=== PATIENT | male | born 1960 | race Caucasian/White ===

== ENCOUNTER 2018-01-18 09:05 | Emergency (ER) | payer OTHER, SELFPAY ==
[2018-01-18 09:06] VITALS: BP 178/106; PULSE 51; RESP 17; TEMP 36.8; O2SAT 98; BMI 40.4
--- NOTE | 2018-01-18 09:21 | ED.VISSUMM ---
- ER Visit Summary Date of Service: 01/18/18 Chief Complaint: Right fourth finger laceration History of Present Illness: The patient is a 57 M who was helping move a car when his ring finger got caught in between the tire and a brake caliper. He sustained a laceration to the fourth finger. He put peroxide on it last night. When he woke up this morning he noted that was still bleeding. His last tetanus was within the last 10 years. He comes in for evaluation of his wound today. Physical Examination: Vital signs are reviewed. The right hand exam reveals a 2 cm laceration on the palm side of the fourth finger at the DIP joint. On the dorsal side there is a skin tear between the DIP and PIP joints. No active bleeding at this time. Test Results: None performed Emergency Department Course and Treatment: It is been over 12 hours since his laceration occurred. He has arrived too late for laceration repair. Patient will have the wound cleaned. Bacitracin and dressing will be placed. He was educated that it is too late for laceration repair. He was encouraged to keep the area clean and dry and keep dressing it with antibiotic creams. He was educated that it may take longer for this to heal since it was not repaired adequate amount of time. He understands and will follow up with his PCP Treatment Plan: [] Disposition: Discharge Impression: Right fourth finger laceration, 2 cm This note was generated with [employer] dictation software. It may contain incorrect words, spelling, and punctuation that were not noted in review of the chart prior to signing ED Disposition - Plan for ED Patient: Chief Complaint: Laceration Referrals: Isela Velez MD [Primary Care Provider] -
--- NOTE | 2018-01-18 09:23 | ED.DEP ---
ED Disposition - Plan for ED Patient: Disposition: Home or Assisted Living Chief Complaint: Laceration Instructions: ED Laceration All Referrals: Isela Velez MD [Primary Care Provider] -
== END 2018-01-18 10:03 | disposition home or self-care (01) ==
PROVIDERS: Emergency Provider Emergency Medicine; Family Provider Internal Medicine; PCP Internal Medicine
DX: S61.214A Laceration without foreign body of right ring finger without damage to nail, initial encounter (principal); W23.0XXA Caught, crushed, jammed, or pinched between moving objects, initial encounter; Y93.89 Activity, other specified; Y92.9 Unspecified place or not applicable; Y99.9 Unspecified external cause status; I10 Essential (primary) hypertension
CPT/HCPCS: 99282

== ENCOUNTER 2020-04-01 16:40 | Emergency (ER) | payer OTHER, SELFPAY ==
[2020-04-01 16:41] VITALS: BP 239/121; PULSE 84; RESP 18; TEMP 36.9; O2SAT 96; BMI 27.7
--- NOTE | 2020-04-01 17:03 | CT_ITS ---
STUDY: CT ABDOMEN AND PELVIS WITH CONTRAST REASON FOR EXAM: Male, 60 years old. LLQ PAIN, HX DIVERTICULITIS, UMBILICAL HERNIA REPAIR RADIATION DOSAGE (If Supplied By Facility): CTDIvol = ( 20.3 ) mGy, DLP = ( 2640.78 ) mGycm TECHNIQUE: Transaxial images were obtained from the dome of the diaphragm to the symphysis pubis without oral contrast. IV 100mL Isovue-370 was administered. Sagittal and coronal images were reconstructed. Individualized dose optimization techniques were used for this CT. COMPARISON: None. FINDINGS: The visualized lung bases are unremarkable. The visualized portions of the heart are within normal limits. Hepatomegaly. Normal gallbladder and extrahepatic biliary system. Normal spleen. Normal pancreas. Normal bilateral adrenal glands. Normal right kidney. 4 cm left renal cyst. Normal visualized stomach. Normal small intestine. There are multiple colonic diverticula consistent with diverticulosis. The appendix is visualized and appears normal. Normal abdominal aorta. Normal inferior vena cava. Normal retroperitoneum. Normal urinary bladder. There is enlargement of the prostate gland. Anterior abdominal wall hernia repair. Normal osseous structures. CT/Abdomen/Pelvis W IV Cont ONLY IMPRESSION: No evidence of appendicitis, acute intestinal pathology, or acute obstructive uropathy. Hepatomegaly. Electronically Signed: Isaiah De La Rosa MD at 18:19 EST Tel , Service support ,
--- NOTE | 2020-04-01 17:05 | ED.DCSUM_ITS ---
- ER Visit Summary Date of Service: 04/01/20 Chief Complaint: Joint pain and left lower quadrant abdominal pain History of Present Illness: The patient is a 60 M history of prior gout and prior diverticulitis. Also history of hypertension and prior hernia repair with mesh. Patient states that about a month ago was treated for what his primary care physician thought was diverticulitis he was placed on Augmentin for initially 10 days and then a total of 18. He had no imaging. He said improved but seems like he is having a bit more left lower quadrant abdominal pain now. Denies any dysuria. States he is peeing frequently but thinks that is from drinking a lot of fluids. Also states Thursday of last week started having right knee pain that moved to his left knee and moved to both feet similar to his prior history of gout attacks. He denies any vomiting, diarrhea or constipation. No melena. No fever. He is currently on no medication for gout. Physical Examination: Middle-aged male vital signs are stable afebrile initial blood pressure is elevated to 39/121. Afebrile. He does not look septic or toxic. H EENT exam unremarkable. Lungs clear to auscultation bilaterally. Heart regular rhythm no murmur. Abdomen obese but soft minimally tender in left lower quadrant. No peritoneal signs. No pulsatile mass. Both the right upper right lower quadrants are unremarkable. No obvious hernia. No signs of obstruction. No masses. Extremities moves all 4. He does have a swollen slightly warm left knee consistent with gout. He is able to flex and extend the left knee with some discomfort. Does not seem to be a septic joint. There is no redness. No cellulitis. He also has mild swelling to both ankles with minimal tenderness. Right knee is not swollen not warm. Neurologically awake alert with no focal motor deficits. Test Results: CBC white count of 10 hemoglobin 14 otherwise unremarkable. Chemistries normal. UA normal. Uric acid normal at 5.5. CT abdomen pelvis with IV contrast read by the radiologist and reviewed by me showed no acute abnormality. No abscess or acute diverticulitis. Diverticulosis was seen. Emergency Department Course and Treatment: Middle-aged male history of prior gout diverticulitis. Thinks he has gout now his exam and history are consistent with that in his knees and ankles. Also thinks he has recurrence of diverticulitis. He has been recently treated for diverticulitis but had no imaging. He is also having frequent urination but no dysuria. Labs are being obtained along with a CAT scan. Will be treated with IV morphine for pain, Zofran and Toradol. His primary pain is the joint pain primarily in his left knee not so much in his abdomen. Treatment Plan: Repeat exam patient is doing well at 1850 3 PM. He is c omfortably discharged to home. He will be started on prednisone here and prednisone at home for 1 week for his gout. Follow-up with his primary care physician Dr. Recinos to limit this. Return if feeling worse. Disposition: discharge Impression: Knee and ankle pain secondary to recurrent gouty arthritis. Abdominal pain left lower quadrant of uncertain etiology This note was generated with [employer] dictation software. It may contain incorrect words, spelling, and punctuation that were not noted in review of the chart prior to signing ED Disposition - Plan for ED Patient: Referrals: Isela Velez MD [Primary Care Provider] -
[2020-04-01 17:25] LABS: Bacteria 0 SEEN /hpf (None Seen); Mucous, Urine 0 SEEN /hpf (<or=2+); Squamous Epithelial Cells - UA 0 SEEN /hpf (0-5)
[2020-04-01 17:27] LABS: Color, Urine Yellow (Yellow); Glucose, Dipstick Normal (Normal); Ketone-Dipstick Negative (Negative); Leukocyte Esterase-Dipstick 25 /ul (Negative); Nitrite-Dipstick Negative (Negative); Occult Blood-Urine 150 /ul (Negative); Protein-Dipstick 100 mg/dl (Negative); Specific Gravity, Urine 1.005 (1.002-1.030); Urine Bilirubin Dipstick Negative (Negative); Urine Clarity Clear (Clear); Urine Urobilinogen Normal (Normal)
[2020-04-01] MEDS: Ondansetron 4 MG/2 ML Vial IV (17:27)
[2020-04-01] MEDS: Ketorolac 30 MG/ML Syringe IV (17:27)
[2020-04-01] MEDS: morphine 8 MG/ML Syringe 6 MG IV (17:28)
[2020-04-01 17:40] LABS: Absolute Lymphocyte Count 0.99 X10^3/uL (0.83-4.51); Absolute Neutrophil Count 8.2 X10^3/uL (2.0-7.7); Basophil# 0.05 X10^3/uL; Basophil% 0.5 % (0-1); Eosinophil# 0.01 X10^3/uL; Eosinophils% 0.1 % (0-5); Hematocrit 42.1 % (40-54); Hemoglobin 14.5 g/dL (13.0-16.5); Lymphocyte # 0.99 X10^3/ul (4.0); Lymphocyte % 9.6 % (19-41); Mean Corp Hgb Conc 34.4 g/dL (32-36); Mean Corpuscular Hgb 31.3 pg (27.0-32.0); Mean Corpuscular Volume 90.9 fL (80-94); Mean Platelet Vol. 9.2 fl (6.2-12.0); Monocyte# 0.99 X10^3/uL; Monocyte% 9.6 % (0-10); NRBC Flagged by Analyzer 0 % (0-5); Neutrophil # 8.22 X10^3/uL (2.7-7.7); Neutrophil % 79.4 % (47-70); Platelet Count 208 K/mm3 (150-450); RBC Distribution Width CV 12.3 % (11.6-14.6); RBC Distribution Width SD 40.8 fl (35.1-43.9); Red Blood Count 4.63 M/mm3 (4.6-6.2); White Blood Count 10.3 K/mm3 (4.4-11.0)
[2020-04-01 17:41] LABS: Red Blood Cells-Urine 5-10 SEEN /hpf (0-5); White Blood Cells 0-5 SEEN /hpf (0-5)
[2020-04-01 17:47] LABS: Anion Gap 6 (5-15); BUN 9 mg/dL (7-18); BUN/Creat Ratio 11.2 RATIO (10-20); Calcium,Total 9.4 mg/dL (8.5-10.1); Chloride 103 mmol/L (98-107); EST Glomerular Filtration Rate 106 mL/min (>60); Est Glom Filt Rate - Afr Amer 128 mL/min (>60); Estimated Creatinine Clearance 117.02 ml/min; Glucose 118 mg/dL (74-106); Potassium 3.8 mmol/L (3.5-5.1); Sodium Level 136 mmol/L (136-145); Uric Acid 5.5 mg/dL (3.5-7.2)
[2020-04-01 18:45] VITALS: BP 172/91; PULSE 64; RESP 20
--- NOTE | 2020-04-01 18:55 | ED.DEP ---
ED Disposition - Plan for ED Patient: Disposition: Home or Assisted Living Instructions: ED ARTHRITIS Gout Prescriptions: Prednisone 40 mg PO DAILY 7 Days #7 tab Prescription Printed Additional Instructions: For the gout in your knees and ankles and elbow prednisone daily 40 mg a day for 1 week. Then stop. Follow-up with your doctor if not improving. You also should discuss with her if she wants to start you on long-term treatment for your gout. Return if fever or feeling worse. The CAT scan of your abdomen was normal.
[2020-04-01] MEDS: predniSONE 20 MG Tablet 60 MG PO (19:12)
[2020-04-01 19:13] VITALS: BP 173/97; PULSE 85; RESP 16
== END 2020-04-01 19:14 | disposition home or self-care (01) ==
PROVIDERS: Emergency Provider Emergency Medicine; PCP Internal Medicine
DX: M10.9 Gout, unspecified (principal); R10.32 Left lower quadrant pain; I10 Essential (primary) hypertension
CPT/HCPCS: 74177; 80048; 81001; 84550; 85025; 96374; 96375; 99284; Q9967; A4216; J2405

== ENCOUNTER 2022-02-24 11:54 | Emergency (ER) | payer OTHER, SELFPAY ==
[2022-02-24 11:57] VITALS: BP 152/98; PULSE 47; RESP 16; TEMP 36.3; O2SAT 99; BMI 40.4
[2022-02-24 11:59] VITALS: BP 152/98; PULSE 116; RESP 16; TEMP 36.3; O2SAT 99
--- NOTE | 2022-02-24 12:30 | CT_ITS ---
STUDY: CT ABDOMEN AND PELVIS WITH CONTRAST REASON FOR EXAM: Male, 61 years old. One-month history of left lower quadrant pain. Abdominal bloating. History of diverticulitis. RADIATION DOSAGE (If Supplied By Facility): CTDIvol = ( 17.03 ) mGy, DLP = ( 1274.24 ) mGycm TECHNIQUE: Transaxial images were obtained from the dome of the diaphragm to the symphysis pubis with oral contrast. Oral and amp; IV Gastrografin and amp; 100mL Isovue-300 was administered. Sagittal and coronal images were reconstructed. Individualized dose optimization techniques were used for this CT. COMPARISON: Comparison is made with prior study dated 04/01/2020. FINDINGS: Stable mild linear scarring at the right lung base. The visualized portions of the heart are within normal limits. There is decreased attenuation of the liver consistent with steatosis. Mild hepatomegaly. Normal gallbladder and extrahepatic biliary system. Normal spleen. Normal pancreas. Normal bilateral adrenal glands. Normal right kidney. 4.9 cm x 4.6 cm cyst in the medial posterior aspect of the left kidney. There is a small hiatal hernia. Normal small intestine. There are scattered colonic diverticula consistent with diverticulosis. The appendix is visualized and appears normal. There is scattered atherosclerotic calcification of the abdominal aorta, without a demonstrated aneurysm. Normal inferior vena cava. Normal retroperitoneum. Normal urinary bladder. There is enlargement of the prostate gland. It measures 9 cm x 6.9 sinus. This causes indentation at the bladder base. There is evidence of prior anterior abdominal wall hernia repair with mesh. There are degenerative changes of the visualized lumbar spine. CT/Abdomen/Pelvis WITH Contrast IMPRESSION: Prostatic enlargement with indentation at the bladder base. Sigmoid diverticulosis without radiographic evidence of diverticulitis. Left renal cyst. Mild hepatomegaly and fatty infiltration of the liver. Electronically Signed: Horace Villanueva MD at 15:09 EDT ,
--- NOTE | 2022-02-24 12:31 | ED.VIS.GI ---
HPI HPI - GI History of Present Illness Chief Complaint: Abd Pain Informant: patient Narrative Narrative: Sent to ED for evaluation by GI, Kasia Phillips [facility]. Still with clinical diverticulitis and of last month. He was on cefdinir and metronidazole for 7 days by his PCP. Feeling better initially week later symptoms are returning. He saw his PCP office was told to monitor however persisted of the last week. He returned another round antibiotics and was given GI referral which she saw 6 days ago. Told after finishing antibiotics which was today if not improved to call back. He states no worsening however no improvement therefore sent here. He has had diverticulitis in the past. There is been no surgical interventions. He has had colonoscopy last x2 years ago, there is another plan colonoscopy when this resolved. Has never been referred to surgery for his diverticulitis. Denies fevers. Denies vomiting. States stools are smaller in caliber. Denies urinary symptoms. Prior similar symptoms: Yes PFSH PFSH Medical History Diverticulitis Gout Hypertension Knee pain Rotator cuff arthropathy Shoulder pain Home Medications dicyclomine 10 mg capsule 10 mg PO TIDAC 04/01/20 [History Last Taken Unknown] losartan 100 mg tablet 100 mg PO DAILY 04/01/20 [History Last Taken Unknown] metoprolol succinate 50 mg tablet,extended release 24 hr 50 mg PO BID 04/01/20 [History Last Taken Unknown] allopurinol 100 mg tablet 100 mg PO DAILY 01/02/21 [History Last Taken Unknown] multivitamin (Daily Multi-Vitamin tablet) 1 tab PO DAILY 01/02/21 [History Last Taken Unknown] omega-3 fatty acids 1,000 mg capsule (Fish Oil Concentrate) 1,000 mg PO DAILY 01/02/21 [History Last Taken Unknown] spironolactone 25 mg tablet 25 mg PO DAILY 02/24/22 [History Last Taken Unknown] Allergy/AdvReac Type Severity Reaction Status Date / Time grass pollen Allergy Unknown unknown Verified 02/24/22 11:55 nut - unspecified Allergy Anaphylaxis Verified 02/24/22 11:55 Family History Grandmother Diabetes Surgical History H/O hernia repair H/O knee surgery Social History 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al status: employed 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, 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, 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al exposures/hazards: Yes Smoking Status: Never smoker how long ago did patient quit smokin years ago ROS ROS ED Constitutional Constitutional ED: Denies chills, fever(s) or sweats Eyes Eyes: Denies change in vision ENT ENT ED: Denies dysphagia or sore throat Cardiovascular Cardiovascular: Denies chest pain, leg edema, palpitations or racing heartbeat Respiratory/Chest Respiratory/Chest: Denies cough, dyspnea or dyspnea on exertion Gastrointestinal Gastrointestinal: Reports abdominal pain; Denies diarrhea, nausea or vomiting Genitourinary Genitourinary ED: Denies dysuria, hematuria or urinary frequency Musculoskeletal Musculoskeletal: Denies back pain, extremity pain or neck pain Integumentary Denies rash or wounds Neurologic Neurologic: Denies headache(s), paresthesias or weakness EXAM Physical Exam Const Vital Signs: 02/24/22 11:57 02/24/22 11:59 Temperature 97.4 F L 97.4 F L Temperature Source Temporal Oral Pulse Rate 47 L 116 H Respiratory Rate 16 16 Blood Pressure 152/98 H 152/98 H Blood Pressure Mean 116 116 Pulse Ox 99 99 Oxygen Delivery Method Room Air Room Air Positive well nourished and well developed General Appearance ED: well developed and NAD HEENT Reports moist mucous membranes normocephalic and atraumatic Eyes PERRL, EOMs intact bilaterally and conjunctivae normal General Eye ED: Yes normal appearance of both eyes Neck no lymphadenopathy and supple General: Negative for tenderness Chest Wall Chest: Negative for tenderness Resp normal respiratory effort and normal air movement Effort and Inspection: symmetric chest movement; Negative for respiratory distress Cardio regular rate, regular rhythm and no murmurs Peripheral Pulses: pulses 2+ throughout GI normal to inspection, nondistended, normoactive bowel sounds GI Narrative: Mild tenderness to deep palpation left lower quadrant. Negative Villarreal's McBurney's tenderness. Palpation: Negative for guarding or rebound tenderness present Back/Spine no CVA tenderness and no thoracic nor lumbar tenderness Extremity normal to inspection General Extremety ED: Negative for edema or tenderness General Extremity: Negative for edema Neuro oriented x3 and no sensory deficits noted Sensorium / Orientation: awake and alert Skin no rashes or lesions noted and no wounds MDM MDM MDM Narrative Medical decision making narrative: Patient persistent recurrent left lower quadrant pain. Treated clinically for diverticulitis. Afebrile nontoxic nonsurgical abdomen exam. Work-up initial without any complicated diverticulitis. White count 5.3. CT scan with contrast negative for diverticulitis or abscess incidental left renal cyst large prostate noted. He is followed by his PCP for his prostate he has no difficulty urinating. He will monitor symptoms. He will follow-up with an outpatient with his PCP and his GI team for outpatient further evaluation. All questions were answered. Lab Data Attestation: I reviewed the patient's lab results. Labs: Laboratory Results - last 24 hr 02/24/22 02/24/22 12:40 12:40 WBC 5.3 RBC 4.26 L Hgb 14.0 Hct 39.1 L MCV 91.8 MCH 32.9 H MCHC 35.8 RDW Std Deviation 44.1 H RDW Coeff of Josee 13.2 Plt Count 191 MPV 9.1 Immature Gran % (Auto) 1.700 H Neut % (Auto) 59.2 Lymph % (Auto) 26.6 Humphreys % (Auto) 9.4 Eos % (Auto) 2.3 Baso % (Auto) 0.8 Absolute Neuts (auto) 3.2 Absolute Lymphs (auto) 1.41 Nucleated RBC % 0 Sodium 140 Potassium 4.0 Chloride 107 Carbon Dioxide 26.0 Anion Gap 7 BUN 11 Creatinine 0.78 Estim Creat Clear Calc 118.56 Est GFR (MDRD) Af Amer 131 Est GFR (MDRD) Non-Af 108 BUN/Creatinine Ratio 14.1 Glucose 103 Calcium 9.6 Radiography Diagnostic Testing: Clinical Impression(s) from Imaging Studies Abdomen/Pelvis CT 02/24/22 12:30 IMPRESSION: Prostatic enlargement with indentation at the bladder base. Sigmoid diverticulosis without radiographic evidence of diverticulitis. Left renal cyst. Mild hepatomegaly and fatty infiltration of the liver. Electronically Signed: Horace Villanueva MD at 15:09 EDT , Discharge Plan Triage Chief Complaint: Abd Pain ED Provider: Jonathan Nolan Dx/Rx/DC Orders Clinical Impression: Abdominal pain, LLQ, Diverticulosis, Cyst of left kidney, Enlarged prostate, History of diverticulitis Instructions: Abdominal Pain Prescriptions: No Action omega-3 fatty acids [Fish Oil Concentrate] 1,000 mg capsule 1,000 mg PO DAILY multivitamin [Daily Multi-Vitamin] Tablet 1 tab PO DAILY allopurinol 100 mg tablet 100 mg PO DAILY metoprolol succinate 50 MG tablet 50 mg PO BID losartan 100 MG tablet 100 mg PO DAILY dicyclomine 10 MG capsule 10 mg PO TIDAC spironolactone 25 mg Tablet 25 mg PO DAILY Primary Care Provider: Isela Velez Referrals: Isela Velez MD [Primary Care Provider] - 5-7 Days Activity Restrictions/Additional Instructions: CT scan negative for acute active diverticulitis or any abscess. Left renal cyst noted 4.9 cm. Enlarged prostate. Normal appendix. Labs are stable. Follow-up with your doctor along with your GI team. . Disposition Disposition: Home, Self Care Discharge Date/Time: 02/24/22 15:31
[2022-02-24] MEDS: 0.9% Normal Saline 1,000 ML 125 ML IV (12:42)
[2022-02-24 12:49] LABS: Absolute Lymphocyte Count 1.41 X10^3/uL (0.83-4.51); Absolute Neutrophil Count 3.2 X10^3/uL (2.0-7.7); Basophil# 0.04 X10^3/uL; Basophil% 0.8 % (0-1); Eosinophil# 0.12 X10^3/uL; Eosinophils% 2.3 % (0-5); Hematocrit 39.1 % (40-54); Lymphocyte # 1.41 X10^3/ul (0.83-4.51); Lymphocyte % 26.6 % (19-41); Mean Corp Hgb Conc 35.8 g/dL (32-36); Mean Corpuscular Hgb 32.9 pg (27.0-32.0); Mean Corpuscular Volume 91.8 fL (80-94); Mean Platelet Vol. 9.1 fl (6.2-12.0); Monocyte% 9.4 % (0-10); NRBC Flagged by Analyzer 0 % (0-5); Neutrophil # 3.15 X10^3/uL (2.7-7.7); Neutrophil % 59.2 % (47-70); Platelet Count 191 K/mm3 (150-450); RBC Distribution Width CV 13.2 % (11.6-14.6); RBC Distribution Width SD 44.1 fl (35.1-43.9); Red Blood Count 4.26 M/mm3 (4.6-6.2); White Blood Count 5.3 K/mm3 (4.4-11.0)
[2022-02-24 13:06] LABS: Anion Gap 7 (5-15); BUN 11 mg/dL (7-18); BUN/Creat Ratio 14.1 RATIO (10-20); Calcium,Total 9.6 mg/dL (8.5-10.1); Chloride 107 mmol/L (98-107); Creatinine, Serum 0.78 mg/dL (0.70-1.30); EST Glomerular Filtration Rate 108 mL/min (>60); Est Glom Filt Rate - Afr Amer 131 mL/min (>60); Estimated Creatinine Clearance 118.56 ml/min; Glucose 103 mg/dL (74-106); Sodium Level 140 mmol/L (136-145)
== END 2022-02-24 15:31 | disposition home or self-care (01) ==
PROVIDERS: Emergency Provider Emergency Medicine; PCP Internal Medicine; Visit Provider Emergency Medicine
DX: R10.32 Left lower quadrant pain (principal); K57.92 Diverticulitis of intestine, part unspecified, without perforation or abscess without bleeding; N28.1 Cyst of kidney, acquired; I10 Essential (primary) hypertension; N40.0 Benign prostatic hyperplasia without lower urinary tract symptoms; M10.9 Gout, unspecified; Z79.899 Other long term (current) drug therapy
CPT/HCPCS: 74177; 80048; 85025; 96360; 96361; 99283; J7030; Q9967; A4216

== ENCOUNTER 2023-05-30 20:12 | Emergency (ER) | payer OTHER, SELFPAY ==
[2023-05-30] VITALS (9 sets, daily range): BP systolic 117–203; BP diastolic 74–146; PULSE 91–143; RESP 14–23; TEMP 36.4; O2SAT 92–96; BMI 43.3
[2023-05-30 20:39] LABS: Absolute Lymphocyte Count 2.42 X10^3/uL (0.83-4.51); Absolute Neutrophil Count 5.5 X10^3/uL (2.0-7.7); Basophil# 0.11 X10^3/uL; Basophil% 1.2 % (0-1); Eosinophil# 0.11 X10^3/uL; Eosinophils% 1.2 % (0-5); Hematocrit 47.6 % (40-54); Hemoglobin 16.1 g/dL (13.0-16.5); Lymphocyte # 2.42 X10^3/ul (0.83-4.51); Lymphocyte % 26.7 % (19-41); Mean Corp Hgb Conc 33.8 g/dL (32-36); Mean Corpuscular Hgb 30.7 pg (27.0-32.0); Mean Corpuscular Volume 90.8 fL (80-94); Mean Platelet Vol. 9.7 fl (6.2-12.0); Monocyte% 7.7 % (0-10); NRBC Flagged by Analyzer 0 % (0-5); Neutrophil # 5.51 X10^3/uL (2.7-7.7); Platelet Count 204 K/mm3 (150-450); RBC Distribution Width CV 12.9 % (11.6-14.6); RBC Distribution Width SD 41.9 fl (35.1-43.9); Red Blood Count 5.24 M/mm3 (4.6-6.2); White Blood Count 9.1 K/mm3 (4.4-11.0)
--- OUTSIDE RECORDS SUMMARY | 2023-05-30 20:42 | XMS RPT_ITS | CCD ---
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 chemistry Dysmetabolic syndrome X Dysmetabolic Syndrome X Class 3 severe obesity due to excess calories without serious comorbidity with body mass index (BMI) of 40.0 to 44.9 in adult ([facility]) [facility] Diagnosis Indigestion- Primary Dyspepsia and other specified disorders of function of stomach [facility] Elevated PSA- Primary Elevated prostate specific antigen (PSA) [facility] Diagnosis Essential hypertension- Primary Unspecified essential hypertension Panic disorder Panic disorder without agoraphobia Indigestion Dyspepsia and other specified disorders of function of stomach Hyperuricemia Other abnormal blood chemistry Mixed hyperlipidemia Class 3 severe obesity due to excess calories without serious comorbidity with body mass index (BMI) of 40.0 to 44.9 in adult (HCC) documented in this encounter [facility] note* Diagnosis Generalized abdominal pain- Primary Abdominal pain, generalized Hiatal hernia Diaphragmatic hernia without mention of obstruction or gangrene Belching Flatulence, eructation, and gas pain Diverticulitis Diverticulitis of colon (without mention of hemorrhage) Constipation, unspecified constipation type documented in this encounter [facility] note* Diagnosis Gross hematuria- Primary documented in this encounter [facility] note* Diagnosis Gross hematuria- Primary Benign prostatic hyperplasia with urinary frequency Screening for genitourinary condition Screening for other and unspecified genitourinary condition documented in this encounter [facility] note* Diagnosis Gross hematuria documented in this encounter [facility] for referral (narrative)* Outpatient Procedure (Routine) - Pending Review Specialty Diagnoses / Procedures Referred By Judi walsh Referred To Contact [facility] Diagnoses Diverticulitis Constipation, unspecified constipation type Procedures COLONOSCOPY DIAGNOSTIC COLONOSCOPY FLX DX W/COLLJ SPEC WHEN PFRMD Kasia Phillips PA-C [address] [place] [address] [facility] [address] [place] [id number] Referral ID Status Reason Start Date Expiration Date Visits Requested Visits Authorized [id number] Pending Review Auto-Generat ed Referral 04/01/2022 04/01/2023 1 1 * Outpatient Procedure (Routine) - Pending Review Specialty Diagnoses / Procedures Referred By Contkimberli walsh Referred To Contact [facility] Diagnoses Hiatal hernia Belching Procedures EGD DIAGNOSTIC ESOPHAGOGASTRODUODENOS COPY TRANSORAL DIAGNOSTIC Kasia Phillips PA-C [address] [place] [address] [facility] [address] [address] Referral ID Status Reason Start Date Expiration Date Visits Requested Visits Authorized [id number] Pending Review Auto-Generat ed Referral 04/01/2022 04/01/2023 1 1 [facility] for referral (narrative)* Outpatient Procedure (Routine) - Closed Specialty Diagnoses / Procedures Referred By Judi t Referred To Contact [facility] Diagnoses Diverticulitis Constipation, unspecified constipation type Procedures COLONOSCOPY DIAGNOSTIC COLONOSCOPY FLX DX W/COLLJ SPEC WHEN PFRMD Kasia Clay PA-C [address] [place] [address] [facility] [address] [place] [address] Referral ID Status Reason Start Date Expiration Date V isits Requested Visits Authorized [id number] Closed Auto-Generate d Referral 04/01/2022 04/01/2023 1 1 * Outpatient Procedure (Routine) - Closed Specialty Diagnoses / Procedures Referred By Judi t Referred To Contact [facility] Diagnoses Hiatal hernia Belching Procedures EGD DIAGNOSTIC ESOPHAGOGASTRODUODENOS COPY TRANSORAL DIAGNOSTIC Kasia Clay PA-C [address] [place] [address] [facility] [address] [place] [address] Referral ID Status Reason Start Date Expiration Date V isits Requested Visits Authorized [id number] Closed Auto-Generate d Referral 04/01/2022 04/01/2023 1 1 [facility] for visit Narrative* Outpatient Procedure (Routine) - Closed Specialty Diagnoses / Procedures Referred By Contkimberli t Referred To Contact [facility] Diagnoses Diverticulitis Constipation, unspecified constipation type Procedures COLONOSCOPY DIAGNOSTIC COLONOSCOPY FLX DX W/COLLJ SPEC WHEN PFRMD Kasia Clay PA-C [address] [place] [address] [facility] [address] [place] [address], [place] [address] Referral ID Status Reason Start Date Expiration Date V isits Requested Visits Authorized [id number] Closed Auto-Generate d Referral 04/01/2022 04/01/2023 1 1 [facility] Advance Directives No Advanced Directives Records FoundDocuments on File Type Date Recorded 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 Advance Directive(s) 04/24/2020 4:52 PM Reason for Referral Specialty Diagnoses / Procedures Referred By Contac t Referred To Contact Gastroenterology Diagnoses Diverticulitis Change in bowel function Procedures CONSULT TO GASTROENTEROLOGY OFFICE/OUTPATIENT [facility] 60-74 MINUTES Mana Granda MD [address] [place] [address] Referral ID Status Reason Start Date Expiration Date Visits Requested Visits Authorized [id number] Pending Review PCP Requested Referral 02/10/2022 02/10/2023 1 1 Specialty Diagnoses / Procedures Referred By Contac t Referred To Contact Diagnoses Indigestion Pauline Velez MD [address] [place] [address] Referral ID Status Reason Start Date Expiration Date Visits Re quested Visits Authorized [id number] Denied 1 1 Specialty Diagnoses / Procedures Referred By Contac t Referred To Contact Urology Diagnoses Gross hematuria Procedures CONSULT TO UROLOGY OFFICE/OUTPATIENT [facility] 60-74 MINUTES Leroy Keller MD [address] [place] [address] Referral ID Status Reason Start Date Expiration Date Visits Requested Visits Authorized [id number] Pending Review PCP Requested Referral 3 04/14/2024 1 1 Specialty Diagnoses / Procedures Referred By Contac t Referred To Contact CT IMAGING Diagnoses Gross hematuria Procedures CT UROGRAM WO/W IVCON CT ABD & PELVIS W/WO CONTRST 1+ BODY Rambo Wu, FENCE ERECTOR.POLITICAL DIRECTOR, DNP [address] [place] [address] [id number] Referral ID Status Reason Start Date Expiration Date Visits Requested Visits Authorized [id number] Authorized Auto-Generat ed Referral 3 05/19/2024 1 1 Medications Administered Section Inactive Administered Medications - up to 3 most recent administrations Medication Order MAR Action Action Date Dose Rate Site benzocaine 20% 1 [place] (TOPEX) 1 [place], TOPICAL, DIRECTED, Starting on Thu05/05/22 at 1430, Until Thu05/05/22 at 1829, DOSING DIRECTED BY PHYSICIAN FOR PROCEDURAL SEDATION ONLY - Pharmaceutical Waste: Aerosol -, Intraprocedure Given 05/05/2022 2:04 PM EST 3 Sprays diphenhydrAMINE 12.5-50 mg injection (BENADRYL) 12.5-50 mg, INTRAVENOUS, DIRECTED, Starting on Thu05/05/22 at 1430, Until Thu05/05/22 at 1829, DOSING DIRECTED BY PHYSICIAN FOR PROCEDURAL SEDATION ONLY, Intraprocedure Given 05/05/2022 2:07 PM EST 50 mg fentaNYL 50 mcg/mL 25-100 mcg injection (SUBLIMAZE) 25-100 mcg, INTRAVENOUS, DIRECTED, Starting on Thu05/05/22 at 1430, Until Thu05/05/22 at 1829, DOSING DIRECTED BY PHYSICIAN FOR PROCEDURAL SEDATION ONLY, Intraprocedure Given 05/05/2022 2:05 PM EST 50 mcg lactated ringers iv infusion 75 mL/hr, INTRAVENOUS, CONTINUOUS, Starting on Thu05/05/22 at 1300, Until Thu05/05/22 at 1446, Preprocedure New Bag/Syringe/[place] le 05/05/2022 1:20 PM EST 75 mL/hr 75 mL/hr Arm, Right midazolam (PF) 1-5 mg injection (VERSED) 1-5 mg, INTRAVENOUS, DIRECTED, Starting on Thu05/05/22 at 1430, Until Thu05/05/22 at 1829, DOSING DIRECTED BY PHYSICIAN FOR PROCEDURAL SEDATION ONLY, Intraprocedure Given 05/05/2022 2:09 PM EST 2 mg Summary Purpose Family History No Family History Records Found Additional Source Comments Source Comments (unrecognize d section and content) In the event this informatio n is protected by the Federal Confidentiality of Alcohol and Drug Abuse Patient Records regulations: The Federal rules restrict any use of the information to criminally investigate or prosecute any alcohol or drug abuse patient.[facility] the event this information is protected by the Federal Confidentiality of Alcohol and Drug Abuse Patient Records regulations: The Federal rules restrict any use of the information to criminally investigate or prosecute any alcohol or drug abuse patient.[facility] the event this information is protected by the Federal Confidentiality of Alcohol and Drug Abuse Patient Records regulations: The Federal rules restrict any use of the information to criminally investigate or prosecute any alcohol or drug abuse patient.[facility] the event this information is protected by the Federal Confidentiality of Alcohol and Drug Abuse Patient Records regulations: The Federal rules restrict any use of the information to criminally investigate or prosecute any alcohol or drug abuse patient.[facility] the event this information is protected by the Federal Confidentiality of Alcohol and Drug Abuse Patient Records regulations: The Federal rules restrict any use of the information to criminally investigate or prosecute any alcohol or drug abuse patient.[facility] the event this information is protected by the Federal Confidentiality of Alcohol and Drug Abuse Patient Records regulations: The Federal rules restrict any use of the information to criminally investigate or prosecute any alcohol or drug abuse patient.[facility] the event this information is protected by the Federal Confidentiality of Alcohol and Drug Abuse Patient Records regulations: The Federal rules restrict any use of the information to criminally investigate or prosecute any alcohol or drug abuse patient.[facility] the event this information is protected by the Federal Confidentiality of Alcohol and Drug Abuse Patient Records regulations: The Federal rules restrict any use of the information to criminally investigate or prosecute any alcohol or drug abuse patient.[facility] the event this information is protected by the Federal Confidentiality of Alcohol and Drug Abuse Patient Records regulations: The Federal rules restrict any use of the information to criminally investigate or prosecute any alcohol or drug abuse patient.[facility] the event this information is protected by the Federal Confidentiality of Alcohol and Drug Abuse Patient Records regulations: The Federal rules restrict any use of the information to criminally investigate or prosecute any alcohol or drug abuse patient.[facility] the event this information is protected by the Federal Confidentiality of Alcohol and Drug Abuse Patient Records regulations: The Federal rules restrict any use of the information to criminally investigate or prosecute any alcohol or drug abuse patient.[facility] the event this information is protected by the Federal Confidentiality of Alcohol and Drug Abuse Patient Records regulations: The Federal rules restrict any use of the information to criminally investigate or prosecute any alcohol or drug abuse patient.[facility] the event this information is protected by the Federal Confidentiality of Alcohol and Drug Abuse Patient Records regulations: The Federal rules restrict any use of the information to criminally investigate or prosecute any alcohol or drug abuse patient.[facility] the event this information is protected by the Federal Confidentiality of Alcohol and Drug Abuse Patient Records regulations: The Federal rules restrict any use of the information to criminally investigate or prosecute any alcohol or drug abuse patient.[facility] the event this information is protected by the Federal Confidentiality of Alcohol and Drug Abuse Patient Records regulations: The Federal rules restrict any use of the information to criminally investigate or prosecute any alcohol or drug abuse patient.[facility] the event this information is protected by the Federal Confidentiality of Alcohol and Drug Abuse Patient Records regulations: The Federal rules restrict any use of the information to criminally investigate or prosecute any alcohol or drug abuse patient.[facility] the event this information is protected by the Federal Confidentiality of Alcohol and Drug Abuse Patient Records regulations: The Federal rules restrict any use of the information to criminally investigate or prosecute any alcohol or drug abuse patient.[facility] the event this information is protected by the Federal Confidentiality of Alcohol and Drug Abuse Patient Records regulations: The Federal rules restrict any use of the information to criminally investigate or prosecute any alcohol or drug abuse patient.[facility] the event this information is protected by the Federal Confidentiality of Alcohol and Drug Abuse Patient Records regulations: The Federal rules restrict any use of the information to criminally investigate or prosecute any alcohol or drug abuse patient.[facility] the event this information is protected by the Federal Confidentiality of Alcohol and Drug Abuse Patient Records regulations: The Federal rules restrict any use of the information to criminally investigate or prosecute any alcohol or drug abuse patient.[facility] the event this information is protected by the Federal Confidentiality of Alcohol and Drug Abuse Patient Records regulations: The Federal rules restrict any use of the information to criminally investigate or prosecute any alcohol or drug abuse patient.[facility] the event this information is protected by the Federal Confidentiality of Alcohol and Drug Abuse Patient Records regulations: The Federal rules restrict any use of the information to criminally investigate or prosecute any alcohol or drug abuse patient.[facility] the event this information is protected by the Federal Confidentiality of Alcohol and Drug Abuse Patient Records regulations: The Federal rules restrict any use of the information to criminally investigate or prosecute any alcohol or drug abuse patient.[facility] the event this information is protected by the Federal Confidentiality of Alcohol and Drug Abuse Patient Records regulations: The Federal rules restrict any use of the information to criminally investigate or prosecute any alcohol or drug abuse patient.[facility] the event this information is protected by the Federal Confidentiality of Alcohol and Drug Abuse Patient Records regulations: The Federal rules restrict any use of the information to criminally investigate or prosecute any alcohol or drug abuse patient.[facility] the event this information is protected by the Federal Confidentiality of Alcohol and Drug Abuse Patient Records regulations: The Federal rules restrict any use of the information to criminally investigate or prosecute any alcohol or drug abuse patient.[facility] the event this information is protected by the Federal Confidentiality of Alcohol and Drug Abuse Patient Records regulations: The Federal rules restrict any use of the information to criminally investigate or prosecute any alcohol or drug abuse patient.[facility] Reason for Visit (unrecogniz ed section and content) Reason Comments Faxed PSA Reason Onset Date Comments Refill Request 09/10/2021 Reason Comments patient information Reason Onset Date Comments Diverticulitis 01/28/2022 Abdominal Pain Reason Comments Abdominal Pain Reason Comments Follow-up Cuff Repair Follow Up Reason Comments Diverticulitis Reason Comments Change in Bowel Function Diverticulitis, Gas, Bloating, Diarrhea Reason Comments Recheck Diverticulitis impro ving but still having issues. ER/CT/labs 02/24/22 Reason Comments Results Reason Comments Sinus Problem Information Reason Comments Procedure Follow Up EGD/colon 05/05/22 Reason Comments Med Change Request Reason Comments Medication Problem Reason Onset Date Comments Refill Request 07/16/2022 Reason Comments F/U 6 months Reason Comments Recheck No concerns doing be tter than before Reason Comments Follow Up Elevated PSA Reason Comments Urinary Problem Blood in urine x 2 d ays Reason Comments Established Patient Reason Comments Radiology CT Specialty Diagnoses / Procedures Referred By Contac t Referred To Contact CT IMAGING Diagnoses Gross hematuria Procedures CT UROGRAM WO/W IVCON CT ABD & PELVIS W/WO CONTRST 1+ BODY Rambo Wu, IRINEO.POLITICAL DIRECTOR, DNP [address] [place] [address] [place] [id number] Referral ID Status Reason Start Date Expiration Date V isits Requested Visits Authorized [id number] Closed Auto-Generate d Referral 04/27/2023 05/19/2024 1 1 Care Teams (unrecognized sec tion and content) Preschool Director Relationship Specialty Start Date End Date Pauline Velez MD [address] [place] [address] PCP - General 03/16/03 Preschool Director Relationship Specialty Start Date End Date Pauline Velez MD [facility] [place] [address] PCP - General 03/16/03 Preschool Director Relationship Specialty Start Date End Date Pauline Velez MD [facility] [place] [address] PCP - General 03/16/03 Preschool Director Relationship Specialty Start Date End Date Pauline Velez MD [address] [place] [address] PCP - General 03/16/03 Preschool Director Relationship Specialty Start Date End Date Pauline Velez MD [facility] [place] [address] PCP - General 03/16/03 Preschool Director Relationship Specialty Start Date End Date Pauline Velez MD [address] [place] [address], [place] [address] PCP - General 03/16/03 Preschool Director Relationship Specialty Start Date End Date Pauline Velez MD [address] [place] [address], [place] [address] PCP - General 03/16/03 Preschool Director Relationship Specialty Start Date End Date Pauline Velez MD [address] [place] [address], [place] [address] PCP - General 03/16/03 Preschool Director Relationship Specialty Start Date End Date Pauline Velez MD [address] [place] [address], [place] [address] PCP - General 03/16/03 Preschool Director Relationship Specialty Start Date End Date Pauline Velez MD [address] [place] [address], [place] [address] PCP - General 03/16/03 Preschool Director Relationship Specialty Start Date End Date Pauline Velez MD [address] [place] [address], [place] [address] PCP - General 03/16/03 Preschool Director Relationship Specialty Start Date End Date Pauline Velez MD [address] [place] [address], [place] [address] PCP - General 03/16/03 Preschool Director Relationship Specialty Start Date End Date Pauline Velez MD [address] [place] [address], [place] [address] PCP - General 03/16/03 Preschool Director Relationship Specialty Start Date End Date Pauline Velez MD [address] [facility] [place] [address] PCP - General 03/16/03 Preschool Director Relationship Specialty Start Date End Date Pauline Velez MD [address] [place] [address] PCP - General 03/16/03 Preschool Director Relationship Specialty Start Date End Date Pauline Velez MD [address] [place] [address] PCP - General 03/16/03 Preschool Director Relationship Specialty Start Date End Date Pauline Velez MD [address] [place] [address] PCP - General 03/16/03 Preschool Director Relationship Specialty Start Date End Date Pauline Velez MD [address] [place] [address] PCP - General 03/16/03 Preschool Director Relationship Specialty Start Date End Date Pauline Velez MD [address] [place] [address] PCP - General 03/16/03 Preschool Director Relationship Specialty Start Date End Date Pauline Velez MD [address] [place] [address] PCP - General 03/16/03 Preschool Director Relationship Specialty Start Date End Date Pauline Velez MD [address] [place] [address] PCP - General 03/16/03 Preschool Director Relationship Specialty Start Date End Date Pauline Velez MD [address] [facility] [place] [address] PCP - General 03/16/03 (unrecognized sect ion and content) No Status Records Found INFORMATION SOURCE (unrecogn ized section and content) FOR RECORDS PERTAINING TO PATIENTS WHO ARE OR HAVE BEEN ENROLLED IN A CHEMICAL DEPENDENCY/SUBSTANCEABUSE PROGRAM, SOME INFORMATION MAY BE OMITTED. This clinical summary was aggregated from multiple sources. Caution should be exercised in using it in the provision of clinical care. This summary normalizes information from multiple sources, and as a consequence, information in this document may materially change the coding, format and clinical context of patient data. In addition, data may be omitted in some cases. CLINICAL DECISIONS SHOULD BE BASED ON THE PRIMARY CLINICAL RECORDS. [facility]. provides no warranty or guarantee of the accuracy or completeness of information in this document.
[2023-05-30] MEDS: dilTIAZem 25 MG/5 ML Vial 20 MG IV BOLUS ×2 (20:46→21:37)
--- NOTE | 2023-05-30 20:50 | EDS_ITS ---
HPI History of Present Illness Chief Complaint: Chest Pain Informant: patient and spouse/S.O. Narrative Narrative: 63-year-old male history of hypertension and BPH presenting to the emergency room with palpitations. Patient states that 1 hour prior to arrival he was sitting watching television when he began to feel his heart race. He states he was told he had PVCs in the past and would occasionally feel those but this feels different. He denies any significant chest pain or shortness of breath. No syncope or near syncope. He takes metoprolol 50 mg twice daily in addition to losartan and spironolactone. He states his last echocardiogram was most likely greater than 10 years ago. He notes a history of sleep apnea but utilizes a CPAP on a nightly basis. He denies any alcohol or tobacco use. The patient denies any known thyroid issues. No history of congestive heart failure. [facility] Medical History Diverticulitis Gout Hypertension Knee pain Rotator cuff arthropathy Shoulder pain Home Medications losartan 100 mg tablet 100 mg PO DAILY 04/01/20 [History Last Taken Unknown] metoprolol succinate 50 mg tablet,extended release 24 hr 50 mg PO BID 04/01/20 [History Last Taken Unknown] allopurinol 100 mg tablet 100 mg PO DAILY 01/02/21 [History Last Taken Unknown] multivitamin (Daily Multi-Vitamin tablet) 1 tab PO DAILY 01/02/21 [History Last Taken Unknown] omega-3 fatty acids 1,000 mg capsule (Fish Oil Concentrate) 1,000 mg PO DAILY 01/02/21 [History Last Taken Unknown] spironolactone 25 mg tablet 25 mg PO DAILY 02/24/22 [History Last Taken Unknown] finasteride 5 mg tablet 5 mg PO DAILY 05/30/23 [History Last Taken Unknown] omeprazole 40 mg capsule,delayed release 40 mg PO DAILY 05/30/23 [History Last Taken Unknown] tamsulosin 0.4 mg capsule 0.4 mg PO QHS 05/30/23 [History Last Taken Unknown] apixaban 5 mg tablet (Eliquis) 5 mg PO BID #60 tabs 05/31/23 [Rx Last Taken Unknown] Allergy/AdvReac Type Severity Reaction Status Date / Time grass pollen Allergy Unknown unknown Verified 02/24/22 11:55 nut - unspecified Allergy Anaphylaxis Verified 02/24/22 11:55 Family History Grandmother Diabetes Surgical History H/O hernia repair H/O knee surgery Social History 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al status: employed 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, 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, 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al exposures/hazards: Yes Smoking Status: Former smoker how long ago did patient quit smokin years ago ROS ROS ED Constitutional Constitutional ED: Denies chills, fever(s) or weight loss Eyes Eyes: Denies change in vision or diplopia ENT ENT ED: Denies ear pain, rhinorrhea or sore throat Cardiovascular Cardiovascular: Reports palpitations and racing heartbeat; Denies chest pain or orthopnea Respiratory/Chest Respiratory/Chest: Denies cough, dyspnea or orthopnea Gastrointestinal Gastrointestinal: Denies abdominal pain, diarrhea, nausea or vomiting Genitourinary Genitourinary ED: Denies dysuria, hematuria or urinary frequency Musculoskeletal Musculoskeletal: Denies arthralgias or myalgias Integumentary Denies abscess or rash Neurologic Neurologic: Denies headache(s) or weakness Psychiatric Psychiatric: Denies anxiety, depression, suicidal ideation or suicidal thoughts Endocrine Endocrinology: Denies polydipsia, polyphagia or polyuria Allergic/Immunologic Allergic/Immunologic ED: Denies mouth swelling, tongue swelling or urticaria EXAM Physical Exam Const Vital Signs: 05/30/23 20:13 05/30/23 20:18 05/30/23 21:12 Temperature 97.6 F L Temperature Source Oral Pulse Rate 132 H 129 H Respiratory Rate 18 18 Respiratory Effort Normal Non-Labored Blood Pressure 203/146 H 166/112 H Blood Pressure Mean 165 130 Blood Pressure Source Blood Pressure Position Blood Pressure Location Pulse Ox 95 93 Oxygen Delivery Method Room Air Room Air 05/30/23 21:53 05/30/23 22:06 05/30/23 22:20 Temperature Temperature Source Pulse Rate 108 H 109 H 141 H Respiratory Rate 23 H 22 H Respiratory Effort Blood Pressure 163/86 H 155/97 H Blood Pressure Mean 111 116 Blood Pressure Source Monitor Monitor Blood Pressure Position Semi-Fowlers Semi-Fowlers Blood Pressure Location Right Arm Right Arm Pulse Ox 93 92 Oxygen Delivery Method Room Air Room Air 05/30/23 22:35 05/30/23 23:00 05/30/23 23:25 Temperature Temperature Source Pulse Rate 143 H 121 H 91 Respiratory Rate 15 18 Respiratory Effort Blood Pressure 117/84 H 142/74 H Blood Pressure Mean 95 96 Blood Pressure Source Monitor Blood Pressure Position Semi-Fowlers Blood Pressure Location Right Arm Pulse Ox 93 96 Oxygen Delivery Method Room Air 05/30/23 23:28 05/31/23 00:04 05/31/23 00:05 Temperature Temperature Source Pulse Rate 94 72 74 Respiratory Rate 14 15 14 Respiratory Effort Blood Pressure 140/74 H 119/86 H 119/86 H Blood Pressure Mean 96 97 97 Blood Pressure Source Monitor Blood Pressure Position Blood Pressure Location Pulse Ox 93 95 94 Oxygen Delivery Method Room Air Room Air Room Air Positive well nourished, well developed and obese General Appearance ED: well developed Nutritional Appearance: obese HEENT Reports normocephalic, head/scalp atraumatic and moist mucous membranes Eyes PERRL and EOMs intact bilaterally Neck no lymphadenopathy, supple and no JVD Resp normal respiratory effort and clear to auscultation bilaterally Cardio no murmurs Rate: tachycardic Rhythm: abnormal rhythm irregularly irregular GI normal to inspection, nondistended, normoactive bowel sounds and non-tender Palpation: soft Back/Spine no CVA tenderness and normal ROM Extremity normal to inspection General Extremety ED: Negative for edema General Extremity: Negative for edema Neuro oriented x3 and CN's II-XII intact bilaterally Sensorium / Orientation: alert Motor Exam: strength 5/5 throughout Psych mental status grossly normal Mood & Affect: Negative for depressed or tearful Skin no rashes or lesions noted and no wounds MDM MDM MDM Narrative Medical decision making narrative: Patient received Cardizem with some improvement in heart rate. He received an additional Cardizem bolus and placed on the drip. Heart rate currently is between 95 and 120. Hemoglobin 16.1. Potassium 3.6 sodium 138. Creatinine 0.89. Troponin normal at 13 TSH 1.72. My independent interpretation of the chest x-ray is no acute process. Patient has not yet converted to a sinus rhythm. He is still requiring Cardizem for rate control plan will be admission in the hospital. After speaking with the hospitalist I went back to talk with the patient and he converted to a normal sinus rhythm. EKG was obtained which confirms this. Start him on Eliquis have him continue his metoprolol. He will need to follow- up with cardiology. Return if worsening or concerns. History & Record Review Discussion w/independent historian: Patient and Significant other Lab Data Attestation: I reviewed the patient's lab results. Labs: Laboratory Results - last 24 hr 05/30/23 20:18 WBC 9.1 RBC 5.24 Hgb 16.1 Hct 47.6 MCV 90.8 MCH 30.7 MCHC 33.8 RDW Std Deviation 41.9 RDW Coeff of Josee 12.9 Plt Count 204 MPV 9.7 Immature Gran % (Auto) 2.200 H Neut % (Auto) 61.0 Lymph % (Auto) 26.7 Wol[place] % (Auto) 7.7 Eos % (Auto) 1.2 Baso % (Auto) 1.2 H Absolute Neuts (auto) 5.5 Absolute Lymphs (auto) 2.42 Nucleated RBC % 0 PT 13.9 INR 1.1 APTT 30.3 Sodium 138 Potassium 3.6 Chloride 106 Carbon Dioxide 27.0 Anion Gap 5 BUN 19 H Creatinine 0.89 Estim Creat Clear Calc 101.34 Est GFR (MDRD) Af Amer 112 Est GFR (MDRD) Non-Af 93 BUN/Creatinine Ratio 21.4 H Glucose 152 H Calcium 10.1 Magnesium 1.8 Troponin I High Sens 13 TSH 1.72 Radiography Diagnostic Testing: Clinical Impression(s) from Imaging Studies Chest X-Ray 05/30/23 21:15 IMPRESSION: Nonacute portable x-ray examination of the chest. Electronically Signed: Ash Lainez MD ([place]) at 21:56 EST Reading Location ID and State: [facility] / [place] , Service support , EKG Initial EKG: Attestation: I personally reviewed and interpreted this EKG as follows: Comments: Atrial fibrillation with rapid ventricular response. There is some ST depression noted V3 through V5 6. Follow-up EKG: Attestation: I personally reviewed and interpreted this EKG as follows: Comments: Sinus rhythm with a ventricular rate of 66 bpm. Discharge Plan Triage Chief Complaint: Chest Pain ED Provider: Rambo Larsen Dx/Rx/DC Orders Clinical Impression: Benign prostatic hyperplasia, Obstructive sleep apnea, Atrial fibrillation, new onset, Hypertension Instructions: AFib Prescriptions: New Eliquis 5 mg tablet 5 mg PO BID Qty: 60 0RF No Action omega-3 fatty acids [Fish Oil Concentrate] 1,000 mg capsule 1,000 mg PO DAILY multivitamin [Daily Multi-Vitamin] Tablet 1 tab PO DAILY allopurinol 100 mg tablet 100 mg PO DAILY metoprolol succinate 50 MG tablet 50 mg PO BID losartan 100 MG tablet 100 mg PO DAILY spironolactone 25 mg Tablet 25 mg PO DAILY tamsulosin 0.4 mg capsule 0.4 mg PO QHS Patient Comments: TAKE 1 CAPSULE BY MOUTH EVERYDAY AT BEDTIME finasteride 5 mg tablet 5 mg PO DAILY omeprazole 40 mg capsule,delayed release(DR/EC) 40 mg PO DAILY Patient Comments: TAKE 1 CAPSULE BY MOUTH ONCE DAILY Primary Care Provider: Isela Velez Referrals: Rachael Miller MD [Med Staff - Active Staff] - As soon as possible Isela Velez MD [Primary Care Provider] - Activity Restrictions/Additional Instructions: Please continue her metoprolol. And begin Eliquis (the blood thinner). Please schedule follow-up with your primary care doctor. You will need to obtain an echocardiogram and follow-up with cardiology. You may follow-up with a marshmallow machine operator of your choice or see the referral above. As discussed your symptoms may return and if so please come back to emergency. Disposition Disposition: Home, Self Care
[2023-05-30 20:52] LABS: International Normalized Ratio 1.1; Prothrombin Time (Protime)PT. 13.9 SECONDS (11.7-14.9)
[2023-05-30 20:53] LABS: Partial Thromboplast Time 30.3 Seconds (24.1-36.2)
[2023-05-30 21:15] LABS: Anion Gap 5 (5-15); BUN 19 mg/dL (7-18); BUN/Creat Ratio 21.4 RATIO (10-20); Calcium,Total 10.1 mg/dL (8.5-10.1); Chloride 106 mmol/L (98-107); Creatinine, Serum 0.89 mg/dL (0.70-1.30); EST Glomerular Filtration Rate 93 mL/min (>60); Est Glom Filt Rate - Afr Amer 112 mL/min (>60); Estimated Creatinine Clearance 101.34 ml/min; Glucose 152 mg/dL (74-106); Potassium 3.6 mmol/L (3.5-5.1); Sodium Level 138 mmol/L (136-145); Thyroid Stim Hormone (TSH) 1.72 uIU/mL (0.358-3.74); Troponin-I HS 13 pg/mL (3.0-78.0)
--- NOTE | 2023-05-30 21:15 | RAD_ITS ---
STUDY: X-RAY CHEST REASON FOR EXAM: Male, 63 years old. hypertension TECHNIQUE: Single AP portable view of the chest. COMPARISON: None. FINDINGS: The lungs are clear and expanded. There is no demonstrated pleural abnormality. Normal size heart. Normal mediastinum and shakila. Normal visualized pulmonary arteries. There is atherosclerotic tortuosity of the aortic arch and descending thoracic aorta. No acute bony process. There is no demonstrated abnormality of the visualized soft tissue structures of the upper abdomen. RAD/Chest 1 View (Portable) IMPRESSION: Nonacute portable x-ray examination of the chest. Electronically Signed: Ash Lainez MD (Brooks) at 21:56 EST ,
[2023-05-30] MEDS: Diltiazem 125 MG in Dextrose 5%-Water (100mL Bag) 100 ML CONT INF (21:53)
--- NOTE | 2023-05-30 22:48 | PCM.HP.STD ---
HPI - General HPI Narrative JENNIFER MARTINEZ, is a 63 M who presents [facility] Medical History Diverticulitis Gout Hypertension Knee pain Rotator cuff arthropathy Shoulder pain Home Medications losartan 100 mg tablet 100 mg PO DAILY 04/01/20 [History Last Taken Unknown] metoprolol succinate 50 mg tablet,extended release 24 hr 50 mg PO BID 04/01/20 [History Last Taken Unknown] allopurinol 100 mg tablet 100 mg PO DAILY 01/02/21 [History Last Taken Unknown] multivitamin (Daily Multi-Vitamin tablet) 1 tab PO DAILY 01/02/21 [History Last Taken Unknown] omega-3 fatty acids 1,000 mg capsule (Fish Oil Concentrate) 1,000 mg PO DAILY 01/02/21 [History Last Taken Unknown] spironolactone 25 mg tablet 25 mg PO DAILY 02/24/22 [History Last Taken Unknown] finasteride 5 mg tablet 5 mg PO DAILY 05/30/23 [History Last Taken Unknown] omeprazole 40 mg capsule,delayed release 40 mg PO DAILY 05/30/23 [History Last Taken Unknown] tamsulosin 0.4 mg capsule 0.4 mg PO QHS 05/30/23 [History Last Taken Unknown] Allergy/AdvReac Type Severity Reaction Status Date / Time grass pollen Allergy Unknown unknown Verified 02/24/22 11:55 nut - unspecified Allergy Anaphylaxis Verified 02/24/22 11:55 Family History Grandmother Diabetes Surgical History H/O hernia repair H/O knee surgery Social History 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al status: employed 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, 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, 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al exposures/hazards: Yes Smoking Status: Former smoker how long ago did patient quit smokin years ago Vital Signs Vital Signs Vital Signs: 05/30/23 20:13 05/30/23 20:18 05/30/23 21:12 Temperature 97.6 F L Temperature Source Oral Pulse Rate 132 H 129 H Respiratory Rate 18 18 Respiratory Effort Normal Non-Labored Blood Pressure 203/146 H 166/112 H Blood Pressure Mean 165 130 Blood Pressure Source Blood Pressure Position Blood Pressure Location Pulse Ox 95 93 Oxygen Delivery Method Room Air Room Air 05/30/23 21:53 05/30/23 22:06 05/30/23 22:20 Temperature Temperature Source Pulse Rate 108 H 109 H 141 H Respiratory Rate 23 H 22 H Respiratory Effort Blood Pressure 163/86 H 155/97 H Blood Pressure Mean 111 116 Blood Pressure Source Monitor Monitor Blood Pressure Position Semi-Fowlers Semi-Fowlers Blood Pressure Location Right Arm Right Arm Pulse Ox 93 92 Oxygen Delivery Method Room Air Room Air 05/30/23 22:35 Temperature Temperature Source Pulse Rate 143 H Respiratory Rate 15 Respiratory Effort Blood Pressure 117/84 H Blood Pressure Mean 95 Blood Pressure Source Monitor Blood Pressure Position Semi-Fowlers Blood Pressure Location Right Arm Pulse Ox 93 Oxygen Delivery Method Room Air Weight Weight: 153.1 kg Body Mass Index (BMI) 43.3 Results Lab / Micro Data 05/30/23 20:18 05/30/23 20:18 Labs: Laboratory Results - last 24 hr 05/30/23 20:18: WBC 9.1, RBC 5.24, Hgb 16.1, Hct 47.6, MCV 90.8, MCH 30.7, MCHC 33.8, RDW Std Deviation 41.9, RDW Coeff of Josee 12.9, Plt Count 204, MPV 9.7, Immature Gran % (Auto) 2.200 H, Neut % (Auto) 61.0, Lymph % (Auto) 26.7, [place] % (Auto) 7.7, Eos % (Auto) 1.2, Baso % (Auto) 1.2 H, Absolute Neuts (auto) 5.5, Absolute Lymphs (auto) 2.42, Nucleated RBC % 0, PT 13.9, INR 1.1, APTT 30.3, Sodium 138, Potassium 3.6, Chloride 106, Carbon Dioxide 27.0, Anion Gap 5, BUN 19 H, Creatinine 0.89, Estim Creat Clear Calc 101.34, Est GFR (MDRD) Af Amer 112, Est GFR (MDRD) Non-Af 93, BUN/Creatinine Ratio 21.4 H, Glucose 152 H, Calcium 10.1, Troponin I High Sens 13, TSH 1.72 Imagaing Radiology Impression Chest X-Ray 05/30/23 21:15 IMPRESSION: Nonacute portable x-ray examination of the chest. Electronically Signed: Ash Lainez MD ([place]) at 21:56 EST , Assessment & Plan Assessment/Plan PLAN: Plan New onset A-fib with RVR?cardio consult, rate control for now, heparin drip
[2023-05-30] MEDS: Aspirin 325 MG Tablet PO (23:01)
[2023-05-31 00:04] VITALS: BP 119/86; PULSE 72; RESP 15; O2SAT 95
[2023-05-31 00:05] VITALS: BP 119/86; PULSE 74; RESP 14; O2SAT 94
--- NOTE | 2023-05-31 00:06 | ED.RN ---
per dr. susan field/lily rios.
--- OUTSIDE RECORDS SUMMARY | 2023-05-31 00:29 | XMS RPT_ITS | CCD ---
Author Name Unknown Address [address] [place] [address] Organization [facility] Care Team Providers Care Food Storeroom Clerk Name Role Phone Rosie DELA CRUZ, Pauline [...] [AMLODIPINE] Drug Allergy 9 Other: See Comments [facility] Work Phone: (20 sources) Ciprofloxacin; Translations: [CIPROFLOXACIN] Drug Allergy 8 Other: See Comments [facility] Work Phone: (20 sources) Citalopram; Translations: [CITALOPRAM] Drug Allergy 8 [facility] Work Phone: (20 sources) Seasonal allergy; Translations: [SEASONAL ALLERGIES] Allergy to substance 2 Other: See Comments [facility] (5 sources) Thiazides; Translations: [THIAZIDES] Drug Intolerance 9 Other: See Comments [facility] Work Phone: (20 sources) Nut - Unspecified; Translations: [NUT - UNSPECIFIED] Propensity to adverse reactions 6 Anaphylaxis [facility] Work Phone: (20 sources) Thiazides Drug Intolerance 9 Other: See Comments [facility] Work Phone: Medications Current Medications Medication Drug [...] Drug Class(es) Dates Sig (Normalized) Sig (Original) [id number] 200 actuat albuterol 0.09 mg/actuat metered dose [...] cm Rambo Ashley APRN.CNP, DNP Work Phone: [facility] 04-20-2023 15:43-0500 Body weight 148.78 kg Rambo Ashley APRN.CNP, DNP Work Phone: [facility] 04-15-2023 15:28-0500 Body temperature 98.2 [degF] Leroy Keller MD Work Phone: [facility] 04-15-2023 15:28-0500 Body weight 150.69 kg Leroy Keller MD Work Phone: [facility] 04-15-2023 15:28-0500 Diastolic blood pressure 100 mm[Hg] Leroy Keller MD Work Phone: [facility] 04-15-2023 15:28-0500 Heart rate 60 /min Leroy Keller MD Work Phone: [facility] 04-15-2023 15:28-0500 Respiratory rate 21 /min Leroy Keller MD Work Phone: [facility] 04-15-2023 15:28-0500 SaO2% (BldA) [Mass fraction] 98 % Leroy Keller MD Work Phone: [facility] 04-15-2023 15:28-0500 Systolic blood pressure 148 mm[Hg] Leroy Keller MD Work Phone: [facility] 12-01-2022 17:25-0400 Diastolic blood pressure 70 mm[Hg] Pauline Velez MD Work Phone: [facility] 12-01-2022 17:25-0400 Systolic blood pressure 142 mm[Hg] Pauline Velez MD Work Phone: [facility] 12-01-2022 16:25-0400 Body temperature 97.9 [degF] Pauline Velez MD Work Phone: [facility] 12-01-2022 16:25-0400 Body weight 150.59 kg Pauline Velez MD Work Phone: [facility] 12-01-2022 16:25-0400 Heart rate 64 /min Pauline Velez MD Work Phone: [facility] 12-01-2022 16:25-0400 Respiratory rate 18 /min Pauline Velez MD Work Phone: [facility] 12-01-2022 16:25-0400 SaO2% (BldA) [Mass fraction] 96 % Pauline Velez MD Work Phone: [facility] 10-07-2022 16:43-0400 Body height 188 cm Suha Sargent PA-C Work Phone: [facility] 10-07-2022 16:43-0400 Body temperature 96.91 [degF] Suha Sargent PA-C Work Phone: [facility] 10-07-2022 16:43-0400 Body weight 149.23 kg Suha Sargent PA-C Work Phone: [facility] 10-07-2022 16:43-0400 Diastolic blood pressure 78 mm[Hg] Suha Sargent PA-C Work Phone: [facility] 10-07-2022 16:43-0400 Heart rate 60 /min Suha Sargent PA-C Work Phone: [facility] 10-07-2022 16:43-0400 Respiratory rate 16 /min Suha Sargent PA-C Work Phone: [facility] 10-07-2022 16:43-0400 SaO2% (BldA) [Mass fraction] 97 % Suha Sargent PA-C Work Phone: [facility] 10-07-2022 16:43-0400 Systolic blood pressure 138 mm[Hg] Suha Sargent PA-C Work Phone: [facility] 09-02-2022 15:29-0400 Body height 185.4 cm Kasia Alan PA-C Work Phone: [facility] 09-02-2022 15:29-0400 Body weight 151.5 kg Kasia Alan PA-C Work Phone: [facility] 09-02-2022 15:29-0400 Diastolic blood pressure 80 mm[Hg] Kasia Alan PA-C Work Phone: [facility] 09-02-2022 15:29-0400 Heart rate 64 /min Kasia Alan PA-C Work Phone: [facility] 09-02-2022 15:29-0400 Systolic blood pressure 142 mm[Hg] Kasia Alan PA-C Work Phone: [facility] 06-20-2022 17:06-0500 Body temperature 98.29 [degF] Pauline Velez MD Work Phone: [facility] 06-20-2022 17:06-0500 Body weight 150.59 kg Pauline Velez MD Work Phone: [facility] 06-20-2022 17:06-0500 Diastolic blood pressure 82 mm[Hg] Pauline Velez MD Work Phone: [facility] 06-20-2022 17:06-0500 Heart rate 68 /min Pauline Velez MD Work Phone: [facility] 06-20-2022 17:06-0500 Respiratory rate 18 /min Pauline Velez MD Work Phone: [facility] 06-20-2022 17:06-0500 SaO2% (BldA) [Mass fraction] 97 % Pauline Velez MD Work Phone: [facility] 06-20-2022 17:06-0500 Systolic blood pressure 122 mm[Hg] Pauline Velez MD Work Phone: [facility] 06-04-2022 15:16-0500 Body height 185.4 cm Kasia Alan PA-C Work Phone: [facility] 06-04-2022 15:16-0500 Body weight 152.41 kg Kasia Alan PA-C Work Phone: [facility] 06-04-2022 15:16-0500 Diastolic blood pressure 86 mm[Hg] Kasia Alan PA-C Work Phone: [facility] 06-04-2022 15:16-0500 Heart rate 60 /min Kasia Alan PA-C Work Phone: [facility] 06-04-2022 15:16-0500 Systolic blood pressure 152 mm[Hg] Kasia Alan PA-C Work Phone: [facility] 05-05-2022 15:12-0500 Diastolic blood pressure 81 mm[Hg] Masha Finnegan MD Work Phone: [facility] 05-05-2022 15:12-0500 Heart rate 54 /min Masha Finnegan MD Work Phone: [facility] 05-05-2022 15:12-0500 Respiratory rate 16 /min Masha Finnegan MD Work Phone: [facility] 05-05-2022 15:12-0500 SaO2% (BldA) [Mass fraction] 92 % Masha Finnegan MD Work Phone: [facility] 05-05-2022 15:12-0500 Systolic blood pressure 123 mm[Hg] Masha Finnegan MD Work Phone: [facility] 05-05-2022 13:30-0500 Body temperature 97.39 [degF] Masha Finnegan MD Work Phone: [facility] 04-01-2022 13:38-0400 Body height 185.4 cm Kasia Alan PA-C Work Phone: [facility] 04-01-2022 13:38-0400 Body weight 148.33 kg Kasia Alan PA-C Work Phone: [facility] 04-01-2022 13:38-0400 Diastolic blood pressure 82 mm[Hg] Kasia Alan PA-C Work Phone: [facility] 04-01-2022 13:38-0400 Heart rate 87 /min Kasia Alan PA-C Work Phone: [facility] 04-01-2022 13:38-0400 Systolic blood pressure 138 mm[Hg] Kasia Alan PA-C Work Phone: [facility] 02-18-2022 13:38-0400 Body height 185.4 cm Kasia Alan PA-C Work Phone: [facility] 02-18-2022 13:38-0400 Body weight 145.29 kg Kasia Alan PA-C Work Phone: [facility] 02-18-2022 13:38-0400 Diastolic blood pressure 92 mm[Hg] Kasia Alan PA-C Work Phone: [facility] 02-18-2022 13:38-0400 Heart rate 50 /min Kasia Alan PA-C Work Phone: [facility] 02-18-2022 13:38-0400 Systolic blood pressure 144 mm[Hg] Kasia Alan PA-C Work Phone: [facility] 02-10-2022 16:40-0400 Diastolic blood pressure 88 mm[Hg] Mana Granda MD Work Phone: [facility] 02-10-2022 16:40-0400 Systolic blood pressure 146 mm[Hg] Mana Granda MD Work Phone: [facility] 02-10-2022 16:36-0400 Body weight 151.5 kg Mana Granda MD Work Phone: [facility] 02-10-2022 16:36-0400 Heart rate 72 /min Mana Granda MD Work Phone: [facility] 02-10-2022 16:36-0400 Respiratory rate 16 /min Mana Granda MD Work Phone: [facility] 01-28-2022 15:27-0400 Body temperature 96.91 [degF] Mana Granda MD Work Phone: [facility] 01-28-2022 15:27-0400 Body weight 146.06 kg Mana Granda MD Work Phone: [facility] 01-28-2022 15:27-0400 Diastolic blood pressure 84 mm[Hg] Mana Granda MD Work Phone: [facility] 01-28-2022 15:27-0400 Heart rate 68 /min Mana Granda MD Work Phone: [facility] 01-28-2022 15:27-0400 Respiratory rate 16 /min Mana Granda MD Work Phone: [facility] 01-28-2022 15:27-0400 Systolic blood pressure 146 mm[Hg] Mana Granda MD Work Phone: [facility] 06-19-2021 17:39-0500 Diastolic blood pressure 80 mm[Hg] Pauline Velez MD Work Phone: [facility] 06-19-2021 17:39-0500 Systolic blood pressure 144 mm[Hg] Pauline Velez MD Work Phone: [facility] 06-19-2021 16:36-0500 Body weight 154.22 kg Pauline Velez MD Work Phone: [facility] 06-19-2021 16:36-0500 Heart rate 48 /min Pauline Velez MD Work Phone: [facility] Encounters Encounter Date Encounter Type Care Provider Facility Start: 05-28-2023 End: 05-28-2023 ambulatory PAULINE Stevan VELEZ Facility:[facility] Start: 04-29-2023 End: 04-29-2023 ambulatory PAULINE D KAISERAMPAS Facility:[facility] Start: 04-29-2023 End: 04-29-2023 Subsequent hospital visit by physician [facility] W[facility] (I-Stat) Work Phone: Cat Scan Procedures Date Procedure Procedure Detail Performing Clinician Start: 04-20-2023 Urnls dip stick/tablet reagent auto microscopy Rambo Ashley MERCURY RECOVERER.CHINCHILLA FARMER, DNP Work Phone: Start: 04-20-2023 Urnls dip stick/tablet rgnt auto w/o microscopy Rambo Ashley MERCURY RECOVERER.CHINCHILLA FARMER, DNP Work Phone: Start: 04-15-2023 Urnls dip stick/tablet rgnt auto w/o microscopy Milagro Villanueva MERCURY RECOVERER.CHINCHILLA FARMER Work Phone: Start: 10-08-2022 Lipid 1996 panel [...] panel - Serum or Plasma Lipid Screening [facility] Start: 10-09-2027 LIPID SCREEN LIPID SCREEN [facility] Start: 10-09-2027 PROSTATE CANCER SCREENING DISCUSSION PROSTATE CANCER SCREENING DISCUSSION [facility] Start: 06-18-2027 LIPID SCREEN LIPID SCREEN [facility] Start: 05-05-2027 Colonoscopy COLONOSCOPY [facility] Start: 05-05-2027 COLORECTAL CANCER SCREENING COLORECTAL CANCER SCREENING [facility] Start: 12-16-2026 LIPID SCREEN LIPID SCREEN [facility] Start: 10-05-2026 PROSTATE CANCER SCREENING DISCUSSION PROSTATE CANCER SCREENING DISCUSSION [facility] Start: 06-14-2026 LIPID SCREEN LIPID SCREEN [facility] Start: 04-15-2026 Diabetes Screening Diabetes Screenin g [facility] Start: 10-08-2025 DIABETES SCREEN [facility] SCREEN [facility] Start: 10-08-2025 Diabetes Screening Diabetes Screenin g [facility] Start: 06-18-2025 DIABETES SCREEN [facility]CREEN [facility] Start: 05-14-2025 Colonoscopy COLONOSCOPY [facility] Start: 05-14-2025 COLORECTAL CANCER SCREENING COLORECTAL CANCER SCREENING [facility] Start: 12-16-2024 DIABETES SCREEN DIABETES SCREEN [facility] Start: 07-11-2024 DIABETES SCREEN DIABETES SCREEN [facility] Start: 12-02-2023 ANNUAL PCP TEAM CUT OFF SAW TENDER METAL MANUEL DISEASE VISIT ANNUAL PCP TEAM CHRONIC DISEASE VISIT [facility] Start: 11-13-2023 PROSTATE CANCER SCREENING DISCUSSION PROSTATE CANCER SCREENING DISCUSSION [facility] Start: 06-20-2023 ANNUAL PCP TEAM CUT OFF SAW TENDER METAL MANUEL DISEASE VISIT ANNUAL PCP TEAM CHRONIC DISEASE VISIT [facility] Start: 04-27-2023 End: 05-19-2024 Ct abdomen & pelvis w/o contrst 1/> body re CT UROGRAM WO/W IVCON Radiology Routine Gross hematuria Expected: 04/27/2023, Expires: 05/19/2024 [facility] Work Phone: Immunizations Immunization Date Immunization Notes Care Provider Fa [facility] 10-14-2022 zoster vaccine recombinant Pauline Velez MD Work Phone: [facility] 07-07-2022 zoster vaccine recombinant Pauline Velez MD Work Phone: [facility] 03-13-2022 influenza virus vacc ine, unspecified formulation Pauline Velez MD Work Phone: [facility] 12-17-2021 COVID-19 vaccine, fu ll dose (MODERNA) Pauline Velez MD Work Phone: [facility] 06-19-2021 influenza, injectabl e, quadrivalent, contains preservative Pauline Velez MD Work Phone: [facility] 09-20-2020 COVID-19 vaccine, fu ll dose (MODERNA) Pauline Velez MD Work Phone: [facility] 08-23-2020 COVID-19 vaccine, fu ll dose (MODERNA) Pauline Velez MD Work Phone: [facility] 03-08-2020 influenza, injectabl e, quadrivalent, contains preservative Pauline Velez MD Work Phone: [facility] Work Phone: 05-04-2018 influenza, injectabl e, quadrivalent, contains preservative Pauline Velez MD Work Phone: [facility] 02-06-2017 influenza, injectabl e, quadrivalent, contains preservative Pauline Velez MD Work Phone: [facility] Work Phone: 03-06-2013 influenza virus vacc ine, unspecified formulation Pauline Velez MD Work Phone: [facility] 06-10-2012 pneumococcal polysaccharide vaccine, 23 valent Pauline Velez MD Work Phone: [facility] 05-12-2012 influenza virus vacc ine, unspecified formulation Pauline Velez MD Work Phone: [facility] 11-11-2009 tetanus toxoid, redu josh diphtheria toxoid, and acellular pertussis vaccine, adsorbed Pauline Velez MD Work Phone: [facility] Work Phone: 07-30-2002 diphtheria and tetan us toxoids, adsorbed for pediatric use Pauline Velez MD Work Phone: [facility] Work Phone: Payers Date Payer Category Payer Private Health Insurance [id number] 2021 Private Health Insurance [id number] 2021 Private Health Insurance xxx [id number] Social History Date Type Detail Facility Start: 08-27-2010 End: 02-18-2022 Tobacco smoking status NHIS Ex-smoker [facility] Work Phone: End: 04-11-1992 History of tobacco use Current smoker [facility] End: 04-11-1992 History of tobacco use Cigarette Smoker [facility] End: 04-11-1992 History of tobacco use Snuff User [facility] Start: 06-19-2021 End: 05-05-2022 Alcohol intake Current non-drinker of alcohol (finding) [facility] Start: 04-03-2020 End: 05-14-2020 History SDOH Alcohol Frequency 1 [facility] Start: 04-03-2020 History SDOH Social Connections Phone 5 [facility] Start: 05-23-2019 End: 04-03-2020 History SDOH Social Connections Scientologist 3 [facility] Start: 05-23-2019 End: 04-03-2020 History SDOH Social Connections Membership 2 [facility] Start: 05-23-2019 History SDOH Financial 4 [facility] Start: 05-23-2019 Education 12 [facility] Start: 1960 Sex Assigned At Male [facility] Start: 06-17-2021 End: 05-04-2022 Exposure to SARS-CoV-2 (event) Not sure [facility] Start: 08-27-2010 End: 06-18-2022 Cigarettes smoked current (pack per day) - Reported 0.5 [facility] Start: 08-27-2010 End: 02-18-2022 Tobacco use and exposure Former smokeless tobacco user [facility] Start: 10-07-2022 End: 04-20-2023 Alcohol intake Ex-drinker (finding) [facility] Start: 04-03-2020 End: 06-18-2022 Social connection and isolation panel [facility] Attends Worship Services Not on file [facility] Work Phone: How often to you hav e a drink containing alcohol? Never [facility] How many standard drinks containing alcohol do you have on a typical day? 1 or 2 [facility] How hard is it for y ou to pay for the very basics like food, housing, medical care, and heating Not very hard [facility] Do you feel stress - tense, restless, nervous, or anxious, or unable to sleep at night because your mind is troubled all the time - these days [OSQ] To some extent [facility] (I/We) worried navya er (my/our) food would run out before (I/we) got money to buy more. Never true [facility] In the past 12 month s, was there a time when you were not able to pay the mortgage or rent on time? No [facility] Start: 04-03-2020 Gender identity Identifies as male gender (finding) [facility] Start: 04-03-2020 Sexual orientation Heterosexual (fin ding) [facility] Clinical Notes 05-10-2015 to 05-28-2023 Reef Naima Perez, RT(R) - 04/29/2023 2:00 PM ESTPatient InstructionsDemi Em, CLINICAL SERVICES PROFESSIONAL - 04/20/2023 3:49 PM Rambo Bautista APRN.LAMBERTO, DNP - 04/20/2023 3:45 PM ESTPatient Instructions Note Date & Type Note Facility 05-28-2023 Note HNO ID: [id number] Author: Cr Auguste MD Service: ? Author Type: Fellow Type: Procedures Filed: 05/28/2023 9:17 AM Note Text: [facility] Patient presents with hematuria gross for cystoscopy. [facility] notes reviewed: Saw Dave Ashley on 04/20/2023. Seen at [facility] [place] on 04/15 for blood in urine x [...] g. PSA in October 04.02 States his dojexzp-sd-qxc had enlarged prostate, and recently had HoLEP in [place]. His crgradw-ex-dlw recommended the procedure. Pt ID verified with patient: Yes Procedure verified with patient: Yes Procedure confirmed with physician and gwot ia/ilo intelligence support: Yes UNIVERSAL PROTOCOL / SAFETY CHECKLIST Procedure [...] possible retained foreign bodies accounted for. Cr Aguuste MD CYSTOSCOPY PROCEDURE NOTE: A urinalysis was [...] given the size of his prostate. His gaihaua-by-iqr had success with HoLEP, and he would prefer that option if needed. Cr Auguste MD [facility] 04-29-2023 Note HNO ID: [id number] Author: Naima Yi RT(R) Service: ? Author Type: Bark Scaler Type: Progress Notes Filed: 04/29/2023 2:32 PM [...] DATE: April 29, 2023 TIME: 2:32 PM [facility] 04-29-2023 History of Present illness Narrative [...] TIME: 2:32 PM documented in this encounter [facility] 04-20-2023 Note HNO ID: [id number] Author: Rambo Ashley APRN.CHINCHILLA FARMER, DNP Service: ? Author Type: Nurse Practitioner Type: Progress Notes Filed: 04/20/2023 4:32 PM Note Text: COUNT INCLUDES THE [facility] MALE PATIENT - HISTORY AND PHYSICAL EXAMINATION PATIENT: Mason Max (63 year old) 04/20/2023 PCP: Pauline Velez MD CHIEF COMPLAINT: Gross hematuria HISTORY OF PRESENT ILLNESS: 63 year old year old male with Gross hematuria. Seen at [facility] on 04/15 for blood in urine x [...] 40 mg capsule (more content not included)... [facility] 04-20-2023 Instructions Rambo Ashley APRN.CHINCHILLA FARMER, SENIA - 04/20/2023 4:19 PM EST Start [...] Ashley APRN.LAMBERTO, SENIA documented in this encounter [facility] 04-20-2023 Nurse Note Bladder scan obtained 94 ml of urine documented in this encounter [facility] 04-20-2023 History of Present illness Narrative COUNT INCLUDES THE [facility] MALE PATIENT - HISTORY AND PHYSICAL EXAMINATION PATIENT: Mason Max (63 year old) 04/20/2023 PCP: Pauline Velez MD CHIEF COMPLAINT: Gross hematuria HISTORY OF PRESENT ILLNESS: 63 year old year old male with Gross hematuria. Seen at [facility] on 04/15 for blood in urine x [...] Abs Lymph 1.00 - 4.00 k/uL 1.98 [place]% % 9.0 Abs [place]ler <0.87 k/uL 0.71 Eosin% % 1.8 Abs Eosin <0.46 k/uL 0.14 Baso% % 1.0 Abs Baso <0.11 k/uL 0.08 Immature Gran % % 1.4 IMMATURE GRANS (ABS) <0.10 k/uL 0.11 (H) NRBC /100 WBC 0.0 Absolute nRBC <0.01 k/uL <0.01 DTYPE Auto Color Yellow Yellow Clarity Clear Clear Glucose, Urine Negative Negative Bilirubin, Urine Negative Negative Ketones, Urine Negative Negative Specific [place], Ur 1.005 - 1.030 1.013 Hemoglobin/Blood,Ur Negative [...] Rambo Ashley DNP, LAMBERTO Department of Urology [facility] documented in this encounter [facility] 04-17-2023 Miscellaneous Notes Patient notified and verbalized understanding of instructions given-states that he has an appointment in [place] [facility] next week.Alexandra Francois LPN Unable to reach patient. Left VM to return call to office. Please read below and advise. Abigail Weber MA No growth in the urine culture. Patient will need to follow up with urology as discussed at time of exam related to blood in urine. Please advise patient. documented in this encounter [facility] 04-16-2023 Miscellaneous Notes Pt was notified of the results. Pt verbalized understanding. Rocio Meza MA No acute findings noted on lab results. Follow-up with urology as discussed. documented in this encounter [facility] 04-15-2023 Note HNO ID: [id number] Author: Leroy Keller MD Service: ? Author [...] pain, fever, dizziness, lethargy. Leroy Keller MD [facility] 04-15-2023 History of Present illness Narrative [...] Leroy Keller MD documented in this encounter [facility] 03-02-2023 Note HNO ID: [id number] Author: Kasia Phillips PA-C Service: ? Author Type: Physician Driver/Refuse Collector Type: Progress Notes Filed: 03/02/2023 2:51 PM [...] Heart sounds: Danielle (more content not included)... [facility] 12-01-2022 Note HNO ID: [id number] Author: Pauline Velez MD Service: ? Author [...] (POCT) Negative Ne (more content not included)... [facility] 12-01-2022 History of Present illness Narrative This note was created using [employer] Pictures[employer]. Subjective Mason Max is a 62 year [...] Pauline Velez MD documented in this encounter [facility] 10-07-2022 Note HNO ID: [id number] Author: Suha Sargent PA-C Service: ? Author Type: Physician Driver/Refuse Collector Type: Progress Notes Filed: 10/07/2022 6:16 PM [...] get IsoPSA Suha Sargent, OC, MT, PA-C [facility] 10-07-2022 Note HNO ID: [id number] Author: Naima Hoyt LPN Service: ? Author [...] the procedure well. Plan: Appointment with Suha. [facility] 10-07-2022 History of Present illness Narrative [...] 05/14/2020 [facility] 05/05/2022 FRACTURE [...] Appointment with Suha. documented in this encounter [facility] 09-02-2022 Note HNO ID: [id number] Author: Kasia Phillips PA-C Service: ? Author Type: Physician Driver/Refuse Collector Type: Progress Notes Filed: 09/02/2022 3:56 PM [...] scleral icterus. Extrao (more content not included)... [facility] 09-02-2022 History of Present illness Narrative [...] which included preparing to see the patient, qzdg-co-bidn patient care, completing clinical documentation, obtaining and/or reviewing separately obtained history, performing a medically appropriate examination, counseling and educating the patient/family/caregiver, and ordering medications, tests, or procedures. Kasia Phillips PA-C September 02, 2022 3:53 PM documented in this encounter [facility] 07-16-2022 Miscellaneous Notes FRANSICO Cuevas, he does not need refills, prescriptions were written 12/18/2021 for 1 year. Patient states he talked to [facility], they were shipping meds out, does not [...] patient. Sheila Paris documented in this encounter [facility] 06-25-2022 Miscellaneous Notes Unable to complete PA electronically. Requested via covermymeds. This is the response. Additional Information Required Your PA has been resolved, no additional PA is required. For further inquiries please contact the number on the back of the member prescription card. (Message [phone]) Pt notified. No not at this time. [...] Omeprazole Provider: Dr Velez Insurance Company Name: [employer] Phone number: Patient ID number: [id number] Pharmacy Name: [facility] Telephone number: [phone] documented in this encounter [facility] 06-20-2022 Note HNO ID: [id number] Author: Pauline Velez MD Service: ? Author Type: Physician Type: Progress Notes Filed: 07/20/2022 5:17 PM Note Text: This note was created using [employer]. Subjective Mason Max is a 62 year [...] DM, and co (more content not included)... [facility] 06-20-2022 History of Present illness Narrative [...] (BMI) of 40.0 to 44.9 in adult ([facility]) E66.01 Z68.41 Above issues addressed with patient. [...] Pauline Velez MD documented in this encounter [facility] 06-04-2022 Note HNO ID: [id number] Author: Kasia Phillips PA-C Service: ? Author Type: Physician Driver/Refuse Collector Type: Progress Notes Filed: 06/04/2022 3:36 PM [...] of Helicobacter pylori organisms. Last OV with tn 04/01/2022: Assessment/Plan (K57.92) Diverticulitis (primary encounter diagnosis) [...] Not Currently Commen (more content not included)... [facility] 06-04-2022 Miscellaneous Notes Patient phones requesting refills as follows: Insurance wants Pantoprazole per pharmacy Requested Prescriptions Pending Prescriptions Disp Refills pantoprazole DR (PROTONIX) 40 mg tablet [Pharmacy Med Name: PANTOPRAZOLE SOD DR 40 MG TAB] 30 tablet 2 Sig: Take 1 tablet by mouth once daily. Please review and advise. Radha Blas Ma documented in this encounter [facility] 06-04-2022 Instructions Kasia Phillips PA-C - 06/04/2022 [...] alleviate reflux symptoms. documented in this encounter [facility] 06-04-2022 History of Present illness Narrative CHIEF [...] 05/14/2020 Repeat in 5 years EGD W/O [facility] SPEC VARICIES INJ 05/05/2022 FRACTURE SURGERY [...] with more than 50% of the total xkrl-uk-jfkl time of the visit in counseling / coordination of care. I have confirmed and edited as necessary, the PFSH and ROS obtained by others. Kasia Phillips PA-C June 04, 2022 3:33 PM documented in this encounter [facility] 05-05-2022 Nurse Note Arrived in phase II via cart. Left lateral position. Sedated, but responds to verbal stimuli. Color normal; skin warm and dry. Respirations wnl and unlabored. Abdomen soft and with + bowel sounds in quads X 4. Patient resting comfortably. Family at bedside. Roxann Casey RN documented in this encounter [facility] 05-05-2022 History and physical note UPDATED PROCEDURAL [...] course of antibiotics. Will send me a Brainrack message with an update after finishing. Will [...] course of antibiotics. Will send me a Brainrack message with an update after finishing. Will [...] no further questions. documented in this encounter [facility] 05-04-2022 Miscellaneous Notes Reason for Call: sinus congestion and asking if he can still have EGD and colonoscopy tomorrow as scheduled Outcome: Home care advice given, to which pt verbalized understanding. Advised pt to call PCP's office tomorrow morning with an update on his condition. Warm transferred to main campus yard operator to page the on-call for his learning services coordinator who ordered his EGD and colonoscopy. Reason [...] is ok Protocols used: Sinus Pain or [id number] documented in this encounter [facility] 05-01-2022 Miscellaneous Notes Received fax from [facility] with PSA results of 4.8 done on 04/23/2022. Provided to Suha Sargent PA-C to review and to operations to be scanned. Naima Hoyt LPN documented in this encounter [facility] 04-01-2022 Instructions Kasia Phillips PA-C - 04/01/2022 [...] If you do not have a responsible pile driver engineer (family member or friend) with you to take you home, your exam cannot be done with sedation and will be cancelled. Please bring a list of all of your current medications, including any Ruhe-wrb-Qjusyrq medications with you. Medications If you take [...] Wheat, Shredded Wheat N Bran, Bran Chex, [place] Bran , and Cracklin' Oat Bran. GOOD SOURCES: Whole Wheat Bread, Whole Wheat Pastas, Nutri-Grain Wheat and [place], Cherrios, Wheaties and Total. VEGETABLES: All vegetables are good sources of fiber, especially those with seeds, skins, stalks, and stems. EXCELLENT SOURCES: Baked beans, Split peas (or split pea soup), Fresh or canned peas, Turnip greens, Mustard greens, Boiled yams, Broccoli-raw or boiled, Green beans, and [place]. GOOD SOURCES: Mushrooms, Baked potato (higher if [...] and Peanut butter. documented in this encounter [facility] 04-01-2022 History of Present illness Narrative Images [...] course of antibiotics. Will send me a Brainrack message with an update after finishing. Will [...] with more than 50% of the total tmet-vc-gxjt time of the visit in counseling / coordination of care. I have confirmed and edited as necessary, the PFSH and ROS obtained by others. Kasia Phillips PA-C April 01, 2022 1:56 PM documented in this encounter [facility] 02-18-2022 Instructions Kasia Phililps PA-C - 02/18/2022 2:03 PM EDT -- Finish course of antibiotics, please send me a MyCiHandle message if symptoms do not improve. Will need a CT scan. -- Low fiber diet at least two weeks after finishing treatment. High fiber diet indefinitely. - Start OTC probiotic with at least 15 billion live cultures, 10+ strains -- Froilan, Suha, Floracolin, [employer] Colon [employer], [facility] -- Lactobacillus -- Any worsening abdominal pain, blood in the stool, fevers, vomiting; please seek ER evaluation documented in this encounter [facility] 02-18-2022 History of Present illness Narrative CHIEF COMPLAINT: Patient presents with: Change in Bowel Function : Diverticulitis, Gas, Bloating, Diarrhea This consult was requested by Mana Granda MD for an opinion regarding diverticulitis. My final recommendations will be communicated to the requesting health care provider by way of the shared medical record for internal providers or letter via the [employer] for external providers. HPI: Mason Max is a 61 year old male who presents for Change in Bowel Function (Diverticulitis, Gas, Bloating, Diarrhea ). PMHx of HTN, HLD, MARGIE, gout, obesity Patient tells me that he went to a friend's wedding at the end of December. Had bad abdominal pain, vomiting, diarrhea. Was given Cefdinir by PCP on 01/28. [place] better. 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 Will send me a Brainrack message with an update after finishing. Will [...] with more than 50% of the total ggzf-nj-pzud time of the visit in counseling / coordination of care. I have confirmed and edited as necessary, the PFSH and ROS obtained by others. Kasia Phillips PA-C February 18, 2022 2:07 PM documented in this encounter [facility] 02-17-2022 Miscellaneous Notes Spoke with pt and information listed below given. Pt verbalizes understanding. Transferred pt to appointment scheduler to get apt with [facility]. Yuliya Velez LPN If having recurrence [...] a return call. documented in this encounter [facility] 02-10-2022 History of Present illness Narrative Reason [...] Mana Granda MD documented in this encounter [facility] 01-28-2022 Miscellaneous Notes noted, agree Protocol recommends [...] urine problems Protocols used: Abdominal Pain - Qhya-RAPLA-HR Patient is calling in today feeling miserable [...] (OMNICEF) 300 mg capsule Please Contact patient [phone] when this has been sent to Pharmacy. [facility] in [place]. Bethany Kimbrough documented in this encounter [facility] 01-28-2022 History of Present illness Narrative Reason [...] Mana Granda MD documented in this encounter [facility] 09-24-2021 Miscellaneous Notes Letty with [employer] calls to request OV notes with DX or mention of MARGIE. OV notes faxed to: [phone]. Abbie Zurita LPN documented in this encounter [facility] 09-10-2021 Miscellaneous Notes Spoke to Mason, Losartan was written 04/10/2021 for 90 tablets, 3 refills sent to [facility]. Patient will check with pharmacy. Sharlene Hampton LPN Patient has been identified by name and date of : Yes Pending Prescriptions Disp Refills LOSARTAN 100 MG TABLET 90 tablet 3 Sig: Take 1 tablet by mouth once daily. ISMAEL: No RX INSTRUCTIONS: Patient aware RX will be sent to pharmacy. No need to notify patient. Sheila Paris documented in this encounter [facility] 09-06-2021 Miscellaneous Notes Faxed PSA order to [facility], attn: Jayda Gamino, per patient request. documented in this encounter [facility] 06-19-2021 History of Present illness Narrative This note was created using [employer] Pictures[employer]. Subjective Mason Max is a 61 year old male. Patient presents with: F/U 6 months SUBJECTIVE: Mason Max is a 61 year old year old gentleman here today for 6 month follow up appointment for review of medical conditions. Noted that COVID infection in December diagnosed at [facility]. Was fully vaccinated. Mild symptoms with chest [...] (BMI) of 40.0 to 44.9 in adult ([facility]) E66.01 Z68.41 5. Encounter for immunization Z23 [...] 4 - Moderate documented in this encounter [facility] documented as of this encounter (statuses as of 09/01/2021) [facility] History of Past illness Narrative* Problem Noted Date Resolved Date Encounter for screening for malignant neoplasm o f colon 05/10/2015 05/10/2015 Diverticulitis large intesti ne w/o perforation or abscess w/o bleeding 05/10/2015 05/10/2015 documented as of this encounter (statuses as of 09/06/2021) [facility] History of Past illness Narrative* Problem Noted Date Resolved Date Encounter for screening for malignant neoplasm o f colon 05/10/2015 05/10/2015 Diverticulitis large intesti ne w/o perforation or abscess w/o bleeding 05/10/2015 05/10/2015 documented as of this encounter (statuses as of 09/10/2021) [address] History of Past illness Narrative* Problem Noted Date Resolved Date Encounter for screening for malignant neoplasm o f colon 05/10/2015 05/10/2015 Diverticulitis large intesti ne w/o perforation or abscess w/o bleeding 05/10/2015 05/10/2015 documented as of this encounter (statuses as of 09/24/2021) [facility] History of Past illness Narrative* Problem Noted Date Resolved Date Encounter for screening for malignant neoplasm o f colon 05/10/2015 05/10/2015 Diverticulitis large intesti ne w/o perforation or abscess w/o bleeding 05/10/2015 05/10/2015 documented as of this encounter (statuses as of 01/28/2022) [address]2015 History of Past illness Narrative* Problem Noted Date Resolved Date Encounter for screening for malignant neoplasm o f colon 05/10/2015 05/10/2015 Diverticulitis large intesti ne w/o perforation or abscess w/o bleeding 05/10/2015 05/10/2015 documented as of this encounter (statuses as of 02/10/2022) [address] History of Past illness Narrative* Problem Noted Date Resolved Date Encounter for screening for malignant neoplasm o f colon 05/10/2015 05/10/2015 Diverticulitis large intesti ne w/o perforation or abscess w/o bleeding 05/10/2015 05/10/2015 documented as of this encounter (statuses as of 02/17/2022) [address] History of Past illness Narrative* Problem Noted Date Resolved Date Encounter for screening for malignant neoplasm o f colon 05/10/2015 05/10/2015 Diverticulitis large intesti ne w/o perforation or abscess w/o bleeding 05/10/2015 05/10/2015 documented as of this encounter (statuses as of 02/18/2022) [address] History of Past illness Narrative* Problem Noted Date Resolved Date Encounter for screening for malignant neoplasm o f colon 05/10/2015 05/10/2015 Diverticulitis large intesti ne w/o perforation or abscess w/o bleeding 05/10/2015 05/10/2015 documented as of this encounter (statuses as of 04/01/2022) [address] History of Past illness Narrative* Problem Noted Date Resolved Date Encounter for screening for malignant neoplasm o f colon 05/10/2015 05/10/2015 Diverticulitis large intesti ne w/o perforation or abscess w/o bleeding 05/10/2015 05/10/2015 documented as of this encounter (statuses as of 05/01/2022) [facility] History of Past illness Narrative* Problem Noted Date Resolved Date Encounter for screening for malignant neoplasm o f colon 05/10/2015 05/10/2015 Diverticulitis large intesti ne w/o perforation or abscess w/o bleeding 05/10/2015 05/10/2015 documented as of this encounter (statuses as of 05/04/2022) [address] History of Past illness Narrative* Problem Noted Date Resolved Date Encounter for screening for malignant neoplasm o f colon 05/10/2015 05/10/2015 Diverticulitis large intesti ne w/o perforation or abscess w/o bleeding 05/10/2015 05/10/2015 documented as of this encounter (statuses as of 06/06/2022) [address] History of Past illness Narrative* Problem Noted Date Resolved Date Encounter for screening for malignant neoplasm o f colon 05/10/2015 05/10/2015 Diverticulitis large intesti ne w/o perforation or abscess w/o bleeding 05/10/2015 05/10/2015 documented as of this encounter (statuses as of 06/06/2022) [address] History of Past illness Narrative* Problem Noted Date Resolved Date Encounter for screening for malignant neoplasm o f colon 05/10/2015 05/10/2015 Diverticulitis large intesti ne w/o perforation or abscess w/o bleeding 05/10/2015 05/10/2015 documented as of this encounter (statuses as of 06/25/2022) [address] History of Past illness Narrative* Problem Noted Date Resolved Date Encounter for screening for malignant neoplasm o f colon 05/10/2015 05/10/2015 Diverticulitis large intesti ne w/o perforation or abscess w/o bleeding 05/10/2015 05/10/2015 documented as of this encounter (statuses as of 07/17/2022) [address] History of Past illness Narrative* Problem Noted Date Resolved Date Encounter for screening for malignant neoplasm o f colon 05/10/2015 05/10/2015 Diverticulitis large intesti ne w/o perforation or abscess w/o bleeding 05/10/2015 05/10/2015 documented as of this encounter (statuses as of 07/20/2022) [address] History of Past illness Narrative* Problem Noted Date Resolved Date Encounter for screening for malignant neoplasm o f colon 05/10/2015 05/10/2015 Diverticulitis large intesti ne w/o perforation or abscess w/o bleeding 05/10/2015 05/10/2015 documented as of this encounter (statuses as of 09/03/2022) [facility] History of Past illness Narrative* Problem Noted Date Resolved Date Encounter for screening for malignant neoplasm o f colon 05/10/2015 05/10/2015 Diverticulitis large intesti ne w/o perforation or abscess w/o bleeding 05/10/2015 05/10/2015 documented as of this encounter (statuses as of 10/08/2022) [facility] History of Past illness Narrative* Problem Noted Date Resolved Date Encounter for screening for malignant neoplasm o f colon 05/10/2015 05/10/2015 Diverticulitis large intesti ne w/o perforation or abscess w/o bleeding 05/10/2015 05/10/2015 documented as of this encounter (statuses as of 11/17/2022) [facility] History of Past illness Narrative* Problem Noted Date Diagnosed Date Resolved Date Encounter for screening for malignant neoplasm of colon 05/10/2015 05/10/2015 Diverticulitis large intesti ne w/o perforation or abscess w/o bleeding 05/10/201505/01 documented as of this encounter (statuses as of 01/05/2023) [facility] of Past illness Narrative* Problem Noted Date Diagnosed Date Resolved Date Encounter for screening for malignant neoplasm of colon 05/10/2015 05/10/2015 Diverticulitis large intesti ne w/o perforation or abscess w/o bleeding 05/10/201505/01 documented as of this encounter (statuses as of 04/05/2023) [facility] of Past illness Narrative* Problem Noted Date Diagnosed Date Resolved Date Encounter for screening for malignant neoplasm of colon 05/10/2015 05/10/2015 Diverticulitis large intesti ne w/o perforation or abscess w/o bleeding 05/10/201505/01 documented as of this encounter (statuses as of 04/16/2023) [facility] History of Past illness Narrative* Problem Noted Date Diagnosed Date Resolved Date Encounter for screening for malignant neoplasm of colon 05/10/2015 05/10/2015 Diverticulitis large intesti ne w/o perforation or abscess w/o bleeding 05/10/201505/01 documented as of this encounter (statuses as of 04/16/2023) [facility] History of Past illness Narrative* Problem Noted Date Diagnosed Date Resolved Date Encounter for screening for malignant neoplasm of colon 05/10/2015 05/10/2015 Diverticulitis large intesti ne w/o perforation or abscess w/o bleeding 05/10/201505/01 documented as of this encounter (statuses as of 04/17/2023) [facility] History of Past illness Narrative* Problem Noted Date Diagnosed Date Resolved Date Encounter for screening for malignant neoplasm of colon 05/10/2015 05/10/2015 Diverticulitis large intesti ne w/o perforation or abscess w/o bleeding 05/10/201505/01 documented as of this encounter (statuses as of 04/21/2023) [facility] History of Past illness Narrative* Problem Noted Date Diagnosed Date Resolved Date Encounter for screening for malignant neoplasm of colon 05/10/2015 05/10/2015 Diverticulitis large intesti ne w/o perforation or abscess w/o bleeding 05/10/201505/01 documented as of this encounter (statuses as of 04/30/2023) [facility] Essential hypertension- Primary Unspecified essential hypertension Panic disorder Panic disorder without agoraphobia Mixed hyperlipidemia Class 3 severe obesity due to excess calories without serious comorbidity with body mass index (BMI) of 40.0 to 44.9 in adult ([facility]) Encounter for immunization Need for other specified [...] (BMI) of 40.0 to 44.9 in adult ([facility]) [facility] Indigestion- Primary Dyspepsia and other specified disorders of function of stomach [facility] Diagnosis Elevated PSA- Primary Elevated prostate specific antigen (PSA) [facility] Diagnosis Essential hypertension- Primary Unspecified essential hypertension Panic disorder Panic disorder without agoraphobia Indigestion Dyspepsia and other specified disorders of function of stomach Hyperuricemia Other abnormal blood chemistry Mixed hyperlipidemia Class 3 severe obesity due to excess calories without serious comorbidity with body mass index (BMI) of 40.0 to 44.9 in adult (HCC) documented in this encounter [facility] note* Diagnosis Generalized abdominal pain- Primary Abdominal pain, generalized Hiatal hernia Diaphragmatic hernia without mention of obstruction or gangrene Belching Flatulence, eructation, and gas pain Diverticulitis Diverticulitis of colon (without mention of hemorrhage) Constipation, unspecified constipation type documented in this encounter [facility] note* Diagnosis Gross hematuria- Primary documented in this encounter [facility] note* Diagnosis Gross hematuria- Primary Benign prostatic hyperplasia with urinary frequency Screening for genitourinary condition Screening for other and unspecified genitourinary condition documented in this encounter [facility] note* Diagnosis Gross hematuria documented in this encounter [facility] for referral (narrative)* Outpatient Procedure (Routine) - Pending Review Specialty Diagnoses / Procedures Referred By Judi walsh Referred To Contact [facility] Diagnoses Diverticulitis Constipation, unspecified constipation type Procedures COLONOSCOPY DIAGNOSTIC COLONOSCOPY FLX DX W/COLLJ SPEC WHEN PFRMD Kasia Phillips PA-C [address] [place] [address] [facility] [address] [place] [id number] Referral ID Status Reason Start Date Expiration Date Visits Requested Visits Authorized [id number] Pending Review Auto-Generat ed Referral 04/01/2022 04/01/2023 1 1 * Outpatient Procedure (Routine) - Pending Review Specialty Diagnoses / Procedures Referred By Contkimberli walsh Referred To Contact [facility] [facility] Diagnoses Hiatal hernia Belching Procedures EGD DIAGNOSTIC ESOPHAGOGASTRODUODENOS COPY TRANSORAL DIAGNOSTIC Kasia Phillips PA-C [address] [place] [address] [facility] [address] [address] Referral ID Status Reason Start Date Expiration Date Visits Requested Visits Authorized [id number] Pending Review Auto-Generat ed Referral 04/01/2022 04/01/2023 1 1 [facility] for referral (narrative)* Outpatient Procedure (Routine) - Closed Specialty Diagnoses / Procedures Referred By Judi t Referred To Contact [facility] Diagnoses Diverticulitis Constipation, unspecified constipation type Procedures COLONOSCOPY DIAGNOSTIC COLONOSCOPY FLX DX W/COLLJ SPEC WHEN PFRMD Kasia Clay PA-C [address] [place] [address] [facility] [address] [place] [id number] Referral ID Status Reason Start Date Expiration Date V isits Requested Visits Authorized [id number] Closed Auto-Generate d Referral 04/01/2022 04/01/2023 1 1 * Outpatient Procedure (Routine) - Closed Specialty Diagnoses / Procedures Referred By Judi t Referred To Contact [facility] Diagnoses Hiatal hernia Belching Procedures EGD DIAGNOSTIC ESOPHAGOGASTRODUODENOS COPY TRANSORAL DIAGNOSTIC Kasia Clay PA-C [address] [place] [address] [facility] [address] [place] [address] Referral ID Status Reason Start Date Expiration Date V isits Requested Visits Authorized [id number] Closed Auto-Generate d Referral 04/01/2022 04/01/2023 1 1 [facility] for visit Narrative* Outpatient Procedure (Routine) - Closed Specialty Diagnoses / Procedures Referred By Contkimberli t Referred To Contact [facility] Diagnoses Diverticulitis Constipation, unspecified constipation type Procedures COLONOSCOPY DIAGNOSTIC COLONOSCOPY FLX DX W/COLLJ SPEC WHEN PFRMD Kasia Clay PA-C [address] [place] [address] [facility] [address] [place] [address], [place] [address] Referral ID Status Reason Start Date Expiration Date V isits Requested Visits Authorized [id number] Closed Auto-Generate d Referral 04/01/2022 04/01/2023 1 1 [facility] Advance Directives No Advanced Directives Records FoundDocuments on File Type Date Recorded Patient Haz Tech Expl anation Advance Directive(s) 04/24/2020 4:52 PM Reason for Referral Specialty Diagnoses / Procedures Referred By Contac t Referred To Contact Gastroenterology Diagnoses Diverticulitis Change in bowel function Procedures CONSULT TO GASTROENTEROLOGY OFFICE/OUTPATIENT [facility] 60-74 MINUTES Mana Granda MD [address] [place] [address] Referral ID Status Reason Start Date Expiration Date Visits Requested Visits Authorized [id number] Pending Review PCP Requested Referral 02/10/2022 02/10/2023 1 1 Specialty Diagnoses / Procedures Referred By Contac t Referred To Contact Diagnoses Indigestion Pauline Velez MD [address] [place] [address] Referral ID Status Reason Start Date Expiration Date Visits Re quested Visits Authorized [id number] Denied 1 1 Specialty Diagnoses / Procedures Referred By Contac t Referred To Contact Urology Diagnoses Gross hematuria Procedures CONSULT TO UROLOGY OFFICE/OUTPATIENT [facility] 60-74 MINUTES Leroy Keller MD [address] [place] [address] Referral ID Status Reason Start Date Expiration Date Visits Requested Visits Authorized [id number] Pending Review PCP Requested Referral 3 04/14/2024 1 1 Specialty Diagnoses / Procedures Referred By Contac t Referred To Contact CT IMAGING Diagnoses Gross hematuria Procedures CT UROGRAM WO/W IVCON CT ABD & PELVIS W/WO CONTRST 1+ BODY Rambo Wu, MERCURY RECOVERER.CHINCHILLA FARMER, DNP [address] [place] [address] Ct [id number] Referral ID Status Reason Start Date Expiration Date Visits Requested Visits Authorized [id number] Authorized Auto-Generat ed Referral 3 05/19/2024 1 1 Medications Administered Section Inactive Administered Medications - up to 3 most recent administrations Medication Order MAR Action Action Date Dose Rate Site benzocaine 20% 1 [place] (TOPEX) 1 [place], TOPICAL, DIRECTED, Starting on Thu05/05/22 at 1430, [...] or prosecute any alcohol or drug abuse patient.[facility] the event this information is protected by the Federal Confidentiality of Alcohol and Drug Abuse Patient Records regulations: The Federal rules restrict any use of the information to criminally investigate or prosecute any alcohol or drug abuse patient.[facility] Center[facility] the event this information is protected by the Federal Confidentiality of Alcohol and Drug Abuse Patient Records regulations: The Federal rules restrict any use of the information to criminally investigate or prosecute any alcohol or drug abuse patient.[facility] Center[facility] the event this information is protected by the Federal Confidentiality of Alcohol and Drug Abuse Patient Records regulations: The Federal rules restrict any use of the information to criminally investigate or prosecute any alcohol or drug abuse patient.[facility] Center[facility] the event this information is protected by the Federal Confidentiality of Alcohol and Drug Abuse Patient Records regulations: The Federal rules restrict any use of the information to criminally investigate or prosecute any alcohol or drug abuse patient.[facility] Center[facility] the event this information is protected by the Federal Confidentiality of Alcohol and Drug Abuse Patient Records regulations: The Federal rules restrict any use of the information to criminally investigate or prosecute any alcohol or drug abuse patient.[facility] CenterIn the event this information is protected by the Federal Confidentiality of Alcohol and Drug Abuse Patient Records regulations: The Federal rules restrict any use of the information to criminally investigate or prosecute any alcohol or drug abuse patient.[facility] CenterIn the event this information is protected by the Federal Confidentiality of Alcohol and Drug Abuse Patient Records regulations: The Federal rules restrict any use of the information to criminally investigate or prosecute any alcohol or drug abuse patient.[facility] CenterIn the event this information is protected by the Federal Confidentiality of Alcohol and Drug Abuse Patient Records regulations: The Federal rules restrict any use of the information to criminally investigate or prosecute any alcohol or drug abuse patient.[facility] CenterIn the event this information is protected by the Federal Confidentiality of Alcohol and Drug Abuse Patient Records regulations: The Federal rules restrict any use of the information to criminally investigate or prosecute any alcohol or drug abuse patient.[facility] CenterIn the event this information is protected by the Federal Confidentiality of Alcohol and Drug Abuse Patient Records regulations: The Federal rules restrict any use of the information to criminally investigate or prosecute any alcohol or drug abuse patient.[facility] CenterIn the event this information is protected by the Federal Confidentiality of Alcohol and Drug Abuse Patient Records regulations: The Federal rules restrict any use of the information to criminally investigate or prosecute any alcohol or drug abuse patient.[facility] CenterIn the event this information is protected by the Federal Confidentiality of Alcohol and Drug Abuse Patient Records regulations: The Federal rules restrict any use of the information to criminally investigate or prosecute any alcohol or drug abuse patient.[facility] CenterIn the event this information is protected by the Federal Confidentiality of Alcohol and Drug Abuse Patient Records regulations: The Federal rules restrict any use of the information to criminally investigate or prosecute any alcohol or drug abuse patient.[facility] CenterIn the event this information is protected by the Federal Confidentiality of Alcohol and Drug Abuse Patient Records regulations: The Federal rules restrict any use of the information to criminally investigate or prosecute any alcohol or drug abuse patient.[facility] CenterIn the event this information is protected by the Federal Confidentiality of Alcohol and Drug Abuse Patient Records regulations: The Federal rules restrict any use of the information to criminally investigate or prosecute any alcohol or drug abuse patient.[facility] CenterIn the event this information is protected by the Federal Confidentiality of Alcohol and Drug Abuse Patient Records regulations: The Federal rules restrict any use of the information to criminally investigate or prosecute any alcohol or drug abuse patient.[facility] CenterIn the event this information is protected by the Federal Confidentiality of Alcohol and Drug Abuse Patient Records regulations: The Federal rules restrict any use of the information to criminally investigate or prosecute any alcohol or drug abuse patient.[facility] CenterIn the event this information is protected by the Federal Confidentiality of Alcohol and Drug Abuse Patient Records regulations: The Federal rules restrict any use of the information to criminally investigate or prosecute any alcohol or drug abuse patient.[facility] CenterIn the event this information is protected by the Federal Confidentiality of Alcohol and Drug Abuse Patient Records regulations: The Federal rules restrict any use of the information to criminally investigate or prosecute any alcohol or drug abuse patient.[facility] CenterIn the event this information is protected by the Federal Confidentiality of Alcohol and Drug Abuse Patient Records regulations: The Federal rules restrict any use of the information to criminally investigate or prosecute any alcohol or drug abuse patient.[facility] CenterIn the event this information is protected by the Federal Confidentiality of Alcohol and Drug Abuse Patient Records regulations: The Federal rules restrict any use of the information to criminally investigate or prosecute any alcohol or drug abuse patient.[facility] CenterIn the event this information is protected by the Federal Confidentiality of Alcohol and Drug Abuse Patient Records regulations: The Federal rules restrict any use of the information to criminally investigate or prosecute any alcohol or drug abuse patient.[facility] CenterIn the event this information is protected by the Federal Confidentiality of Alcohol and Drug Abuse Patient Records regulations: The Federal rules restrict any use of the information to criminally investigate or prosecute any alcohol or drug abuse patient.[facility] CenterIn the event this information is protected by the Federal Confidentiality of Alcohol and Drug Abuse Patient Records regulations: The Federal rules restrict any use of the information to criminally investigate or prosecute any alcohol or drug abuse patient.[facility] CenterIn the event this information is protected by the Federal Confidentiality of Alcohol and Drug Abuse Patient Records regulations: The Federal rules restrict any use of the information to criminally investigate or prosecute any alcohol or drug abuse patient.[facility] CenterIn the event this information is protected by the Federal Confidentiality of Alcohol and Drug Abuse Patient Records regulations: The Federal rules restrict any use of the information to criminally investigate or prosecute any alcohol or drug abuse patient.[facility] Reason for Visit (unrecogniz ed section and [...] PELVIS W/WO CONTRST 1+ BODY Rambo Wu, IRINEO.CHINCHILLA FARMER, DNP [address] [place] [address] [place] [address] Referral ID Status Reason Start Date Expiration Date V isits Requested Visits Authorized [id number] Closed Auto-Generate d Referral 04/27/2023 05/19/2024 1 1 Care Teams (unrecognized sec tion and content) Food Storeroom Clerk Relationship Specialty Start Date End Date Pauline Velez MD [address] [place] [address] PCP - General 03/16/03 Food Storeroom Clerk Relationship Specialty Start Date End Date Pauline Velez MD [facility] [place] [address] PCP - General 03/16/03 Food Storeroom Clerk Relationship Specialty Start Date End Date Pauline Velez MD [facility] [place] [address] PCP - General 03/16/03 Food Storeroom Clerk Relationship Specialty Start Date End Date Pauline Velez MD [address] [place] [address] PCP - General 03/16/03 Food Storeroom Clerk Relationship Specialty Start Date End Date Pauline Velez MD [facility] [place] [address] PCP - General 03/16/03 Food Storeroom Clerk Relationship Specialty Start Date End Date Pauline Velez MD [address] [place] [address], [place] [address] PCP - General 03/16/03 Food Storeroom Clerk Relationship Specialty Start Date End Date Pauline Velez MD [address] [place] [address], [place] [address] PCP - General 03/16/03 Food Storeroom Clerk Relationship Specialty Start Date End Date Pauline Velez MD [address] [place] [address], [place] [address] PCP - General 03/16/03 Food Storeroom Clerk Relationship Specialty Start Date End Date Pauline Velez MD [address] [place] [address], [place] [address] PCP - General 03/16/03 Food Storeroom Clerk Relationship Specialty Start Date End Date Pauline Velez MD [address] [place] [address], [place] [address] PCP - General 03/16/03 Food Storeroom Clerk Relationship Specialty Start Date End Date Pauline Velez MD [address] [place] [address], [place] [address] PCP - General 03/16/03 Food Storeroom Clerk Relationship Specialty Start Date End Date Pauline Velez MD [address] [place] [address], [place] [address] PCP - General 03/16/03 Food Storeroom Clerk Relationship Specialty Start Date End Date Pauline Velez MD [address] [place] [address], [place] [address] PCP - General 03/16/03 Food Storeroom Clerk Relationship Specialty Start Date End Date Pauline Velez MD [address] [facility] [place] [address] PCP - General 03/16/03 Food Storeroom Clerk Relationship Specialty Start Date End Date Pauline Velez MD [address] [place] [address] PCP - General 03/16/03 Food Storeroom Clerk Relationship Specialty Start Date End Date Pauline Velez MD [address] [place] [address] PCP - General 03/16/03 Food Storeroom Clerk Relationship Specialty Start Date End Date Pauline Velez MD [address] [place] [address] PCP - General 03/16/03 Food Storeroom Clerk Relationship Specialty Start Date End Date Pauline Velez MD [address] [place] [address] PCP - General 03/16/03 Food Storeroom Clerk Relationship Specialty Start Date End Date Pauline Velez MD [address] [place] [address] PCP - General 03/16/03 Food Storeroom Clerk Relationship Specialty Start Date End Date Pauline Velez MD [address] [place] [address] PCP - General 03/16/03 Food Storeroom Clerk Relationship Specialty Start Date End Date Pauline Velez MD [address] [place] [address] PCP - General 03/16/03 Food Storeroom Clerk Relationship Specialty Start Date End Date Pauline Velez MD [address] [facility] [place] [address] PCP - General 03/16/03 (unrecognized sect ion [...] BE BASED ON THE PRIMARY CLINICAL RECORDS. [facility]. provides no warranty or guarantee of the accuracy or completeness of information in this document.
[2023-05-31 00:39] LABS: Magnesium 1.8 mg/dL (1.6-2.6)
[2023-05-31] MEDS: APIXABAN 5 MG TABLET PO (00:54)
[2023-05-31 01:00] VITALS: BP 116/79; PULSE 70; RESP 16; O2SAT 100
== END 2023-05-31 01:02 | disposition home or self-care (01) ==
LOC: ED 20:53 → PCU 05-31 00:28 → ED 05-31 00:40
PROVIDERS: Hospitalist; Emergency Provider Emergency Medicine; PCP Internal Medicine; Visit Provider Emergency Medicine
DX: I48.91 Unspecified atrial fibrillation (principal); I10 Essential (primary) hypertension; N40.0 Benign prostatic hyperplasia without lower urinary tract symptoms; G47.33 Obstructive sleep apnea (adult) (pediatric); Z79.899 Other long term (current) drug therapy; Z87.891 Personal history of nicotine dependence
CPT/HCPCS: 71045; 80048; 83735; 84443; 84484; 85025; 85610; 85730; 93005; 96365; 96366; 96375; 99285; A4216